=== PATIENT | female | born 1950 | race Caucasian/White ===

== ENCOUNTER 2017-04-24 13:04 | Emergency (ER) | payer OTHER ==
[~2017-04-24] VITALS: Ht 167.6 cm; Wt 122.5 kg
[~2017-04-24 13:04] MED LIST: ALBUTEROL2.5 MG/3 M INH; AMLODIPINE BESY10 MG PO; ASPIRIN EC81 MG PO; BACTRIM DS TAB1 EACH PO; BENADRYL ITCH28.3 G1 TOP; BENADRYL ITCH28.3 GM TP; BENAZEPRIL HCL40 MG PO; BISCOLAX10 MG RC; BUSPIRONE HCL10 MG PO; CENTANY30 GM TOP; CLINDAMYCIN HC150 MG PO; CLINDAMYCIN HC300 MG PO; CLOBETASOL EMOL15 GM TOP; COLACE100 MG PO; DIFLUCAN150 MG PO; DOXYCYCLINE HY100 M3 PO; DOXYCYCLINE HY100 MG PO; DRISDOL50000 UNIT PO; DSS250 MG PO; EPIPEN1 EA INJ; FLEET ENEMA133 ML PR; FLEET ENEMA133 ML RC; FUROSEMIDE40 MG PO; HUMALOG100 UNIT/2 SQ; IMDUR120 MG PO; IRON325 MG PO; KENALOG-4040 MG/ML IB; LANTUS SOL100 UNIT/1 SUB-Q; LIDOPRO PATCH1 EACH TP; LOPRESSOR100 MG PO; LORAZEPAM1 MG PO; LOVASTATIN20 MG PO; MAGNESIUM OXID400 MG PO; METHADONE HCL10 MG PO; METHADONE HCL5 MG PO; METOPROLOL SUC100 MG PO; MILK OF MA400 MG/5 M PO; NEURONTIN800 MG PO; NITROSTAT0.4 MG SL; NORCO 10-325 T1 EACH PO; NORTRIPTYLINE H50 MG PO; NYSTATIN1 EAC2 TOP; OMEPRAZOLE20 MG PO; OXYCODONE HCL15 MG PO; PREDNISONE5 MG PO; PROMETHAZINE HC50 MG PO; RANITIDINE HCL300 M1 PO; REQUIP1 MG PO; REQUIP2 MG PO; ROPINIROLE HCL0.5 MG PO; SENEXON8.6 MG PO; TERBINAFINE HC250 MG PO; TRIAMCINOLONE A15 G1 TOP; VENTOLIN HFA18 GM IH; VITAMIN D350000 UNIT PO; ZITHROMAX250 MG PO; ZYRTEC10 M3 PO
[2017-04-24] MEDS ORDERED: DOCUSATE SODIU250 MG PO (13:47)
[2017-04-24] MEDS ORDERED: REQUIP1 MG PO (13:58)
[2017-04-24] MEDS ORDERED: SULINDAC200 MG PO (14:00)
[2017-04-24] MEDS ORDERED: NORCO 10-325 T1 EACH PO (14:06)
[2017-04-24] MEDS ORDERED: CEFPODOXIME PR200 MG PO (16:01)
--- NOTE | 2017-04-24 22:14 | EKG ---
[facility] [address] [place] [address] Signed Sinus rhythm with 1st degree AV block Left axis deviation Right bundle branch block Septal infarct , age undetermined Inferior infarct , age undetermined Abnormal ECG No previous ECGs available Confirmed by FATEMEH BHAKTA MD ([id number]) on 04/24/2017 10:14:53 PM Electronically Signed By: FATEMEH BHAKTA MD 04/24/17 2214 PATIENT NAME: MANDYFARHAT Electrocardiogram DATE OF : 50 PHYSICIAN: FATEMEH BHAKTA MD REPORT #: [id number] REPORT IS CONFIDENTIAL AND NOT TO BE RELEASED WITHOUT AUTHORIZATION
== END 2017-04-24 17:17 | disposition home or self-care (01) ==
LOC: ED 13:04
DX: E11.649 Type 2 diabetes mellitus with hypoglycemia without coma (principal); N39.0 Urinary tract infection, site not specified; I25.10 Atherosclerotic heart disease of native coronary artery without angina pectoris; J45.909 Unspecified asthma, uncomplicated; F32.9 Major depressive disorder, single episode, unspecified; F41.9 Anxiety disorder, unspecified; I10 Essential (primary) hypertension; K21.9 Gastro-esophageal reflux disease without esophagitis; D64.9 Anemia, unspecified; E66.9 Obesity, unspecified; Z90.710 Acquired absence of both cervix and uterus; Z91.048 Other nonmedicinal substance allergy status; Z91.038 Other insect allergy status; Z88.6 Allergy status to analgesic agent; Z88.5 Allergy status to narcotic agent; Z88.1 Allergy status to other antibiotic agents; Z79.4 Long term (current) use of insulin; Z79.899 Other long term (current) drug therapy; Z79.82 Long term (current) use of aspirin; Z79.52 Long term (current) use of systemic steroids
CPT/HCPCS: 80053; 81001; 85025; 87088; 93005; 93010; 96361; 96374; 99283; J0696; J7030

== ENCOUNTER 2024-05-08 17:42 | Emergency (ER) | payer OTHER ==
[~2024-05-08] VITALS: Ht 167.6 cm; Wt 117.5 kg
[~2024-05-08 17:42] MED LIST changes: +CEFPODOXIME PR200 MG PO; +DOCUSATE SODIU250 MG PO; +SULINDAC200 MG PO
--- OUTSIDE RECORDS SUMMARY | 2024-05-08 17:49 | XMS ---
PreManage Notification: FARHAT GALVAN Security Investigative Agent Events No recent Security Events currently on file CRITERIA MET - 6 ED Visits in 6 Months - [facility] - 2 Visits in 30 Days CARE PROVIDERS Vijaya Keen Insemination Worker/Treasury Analyst 12/19/2023-Current PHONE: [phone] ANGELICA PUCKETT [facility] 08/03/2015-Current PHONE: [phone] -, [facility] Dentist: Packing Tractor Machine Operator [facility] PHONE: [phone] -Telma- Dentist: Packing Tractor Machine Operator [facility] Dental [facility] PHONE: [phone] ADELINA CRUZ [facility]INE[facility]ONY PHONE: Unknown Care Guidelines exist for the following facilities: [facility] ( 11/15/2018 ) [place] VISIT COUNT (12 MO.) [facility] (Anthony Cruz) 1 DINA Estrada TOTAL 6 NOTE: Visits indicate total known visits. ED/UCC VISIT TRACKING (12 MO.) 05/08/2024 17:42 DINA Gan TYPE: Emergency COMPLAINT: - CHEST PAIN 04/11/2024 12:50 [facility] Anthony [place] ([place] TYPE: Emergency DIAGNOSES: - Bradycardia, unspecified - Bradycardia, unspecified - Hyperkalemia - Unspecified atrial fibrillation - Unspecified atrial fibrillation - Urinary tract infection, site not specified - Urinary tract infection, site not specified - Bradycardia 04/01/2024 15:09 [facility] Anthony [place] ([place]) TYPE: Emergency DIAGNOSES: - Acute cystitis with hematuria - Blister (nonthermal), left foot, initial encounter - Cellulitis - lt foot sore 01/05/2024 03:06 [facility] [place] ([place] TYPE: Emergency DIAGNOSES: - Contusion of left hip, initial encounter - Contusion of right shoulder, initial encounter - Unspecified fall, initial encounter - Unspecified place in unspecified non-institutional (private) residence as the place of occurrence of the external cause - ambulance - Fall - Hip Pain 12/21/2023 19:51 [facility] Anthony [place] (Anthony Cruz) TYPE: Emergency DIAGNOSES: - Abrasion of other part of head, initial encounter - Contusion of scalp, initial encounter - Fall from bed, initial encounter - Pain in left hip - Strain of muscle, fascia and tendon at neck level, initial encounter - Facial Pain - Fall - Hip Pain 11/09/2023 19:59 [facility] Anthony [place] ([place]) TYPE: Emergency DIAGNOSES: - Contusion of right lower leg, initial encounter - Leg Pain - rt leg bruising INPATIENT VISIT TRACKING (12 MO.) 04/11/2024 12:50 [facility] [place] ([place] Cruz) TYPE: Medical Surgical DIAGNOSES: - Acute kidney failure, unspecified - Anxiety disorder, unspecified - Bradycardia, unspecified - Chronic kidney disease, stage 3a - Chronic pain syndrome - Diabetes mellitus due to underlying condition with diabetic polyneuropathy - Hyperkalemia - Hypomagnesemia - penitentiary (current) use of insulin - Mild intermittent asthma, uncomplicated - Neuralgia and neuritis, unspecified - Obstructive sleep apnea (adult) (pediatric) - Pruritus, unspecified - Type 2 diabetes mellitus with diabetic neuropathy, unspecified - Unspecified atrial fibrillation - Urinary tract infection, site not specified - Urinary tract infection, site not specified [email or web address]
[2024-05-08 18:20] LABS: HEMOGLOBIN 11.3 g/dL (12.0-18.0); MCHC 32.6 g/dl (30-36)
[2024-05-08 18:22] LABS: BASOPHILS 0.7 % (0-2); EOSINOPHILS 1.5 % (0-6); HEMATOCRIT 34.7 % (35.0-50.0); LYMPHOCYTES 12.3 % (24-44); MCH 30.5 (27-36); MCV 93.6 fl (81-99); MONOCYTES 7.4 % (0-12); NEUTROPHILS 78.1 % (39-80); PLATELET COUNT 229 K/uL (140-440); RDW 15.3 (10.5-15.0)
[2024-05-08 18:37] LABS: ALBUMIN 2.7 g/dL (3.4-5.0); ALBUMIN/GLOBULIN RATIO 0.84 (1.1-2.4); ANION GAP 9.6 (7-21); BILIRUBIN, TOTAL 0.4 ng/dL (0.2-1.0); BUN/CREATININE RATIO 16.03 (6.0-28.6); CALCIUM 8.5 mg/dL (8.5-10.1); CREATININE, SERUM 1.06 mg/dL (0.55-1.02); MAGNESIUM 1.5 mg/dL (1.8-2.4); POTASSIUM 4.6 mmol/L (3.5-5.1); PROTEIN, TOTAL 5.9 g/dL (6.4-8.2)
[2024-05-08] MEDS ORDERED: MAGNESIUM SULFATE 2 GM/50 ML BAG IV ONE (20:00)
[2024-05-08 20:34] LABS: BILIRUBIN, URINE NEGATIVE (negative); BLOOD/HGB, URINE NEGATIVE (Negative); KETONE, URINE NEGATIVE (Negative); LEUK ESTERASE, URINE TRACE (negative); NITRITE, URINE POSITIVE (negative)
[2024-05-08 20:51] LABS: WHITE BLOOD CELLS, URINE 21-40 /HPF (0-5)
[2024-05-08 20:52] LABS: BACTERIA, URINE 3+ /hpf (negative); CRYSTALS, URINE NONE SEEN (0-1+); EPITHELIAL CELLS, URINE SQUAMOUS 1+ /lpf (0-1+)
[2024-05-08 20:53] LABS: CASTS, URINE HYALINE 1+ \\lpf; COLLECTION TYPE, URINE CLEAN CATCH; REFLEX CULTURE, URINE Yes (No)
[2024-05-08] MEDS ORDERED: MAGNESIUM OXID400 M1 PO (21:04)
[2024-05-08] MEDS ORDERED: MACROBID 100 M100 MG PO (21:04)
[2024-05-08] MEDS ORDERED: PLAVIX75 MG PO (21:04)
[2024-05-08] MEDS ORDERED: NITROFURANTOIN MONOHYD MACROCR 100 MG HOME.PACK PO ONE (21:15)
[2024-05-08] MEDS ORDERED: CLOPIDOGREL BISULFATE 75 MG TAB PO ONE (21:15)
[2024-05-08] MEDS ORDERED: ELIQUIS5 MG PO (21:32)
[2024-05-08 21:39] VITALS: BP 123/64
[2024-05-08] MEDS ORDERED: CEFDINIR 300 MG HOME.PACK PO ONE (21:45)
--- NOTE | 2024-05-10 20:26 | EKG ---
[facility] [address] [place] [address] Signed Sinus bradycardia Indeterminate axis Nonspecific intraventricular block Possible Right ventricular hypertrophy Possible Inferior infarct (cited on or before 24-APR-2017) Possible Anterolateral infarct (cited on or before 24-APR-2017) Abnormal ECG When compared with ECG of 08-MAY-2024 17:54, (Unconfirmed) premature supraventricular complexes are no longer present Questionable change in QRS axis Confirmed by Jake Carroll MD ([id number]) on 05/10/2024 8:26:30 PM Electronically Signed By: JAKE CARROLL MD 05/10/242025 PATIENT NAME: FARHAT GALVAN Electrocardiogram DATE OF : 50 PHYSICIAN: JAKE CARROLL MD REPORT #: [id number] REPORT IS CONFIDENTIAL AND NOT TO BE RELEASED WITHOUT AUTHORIZATION
--- NOTE | 2024-05-11 08:52 | EKG ---
[facility] [address] [facility] [place], [place] [address] Signed EKG completed, results pending confirmation PATIENT NAME: MANDYFARHAT Electrocardiogram DATE OF : 50 PHYSICIAN: PRELIMINARY REPORT #: [id number] REPORT IS CONFIDENTIAL AND NOT TO BE RELEASED WITHOUT AUTHORIZATION
== END 2024-05-08 21:39 | disposition home or self-care (01) ==
LOC: ED 17:42
PROVIDERS: Emergency Medicine; Family Medicine
DX: I63.81 Other cerebral infarction due to occlusion or stenosis of small artery (principal); E83.42 Hypomagnesemia; N39.0 Urinary tract infection, site not specified; E11.9 Type 2 diabetes mellitus without complications; I25.10 Atherosclerotic heart disease of native coronary artery without angina pectoris; J45.998 Other asthma; I10 Essential (primary) hypertension; K21.9 Gastro-esophageal reflux disease without esophagitis; F41.9 Anxiety disorder, unspecified; F32.A Depression, unspecified; E66.9 Obesity, unspecified; Z88.1 Allergy status to other antibiotic agents; Z88.5 Allergy status to narcotic agent; Z88.8 Allergy status to other drugs, medicaments and biological substances; Z87.898 Personal history of other specified conditions; Z91.030 Bee allergy status; Z79.4 Long term (current) use of insulin; Z79.899 Other long term (current) drug therapy; Z79.82 Long term (current) use of aspirin
CPT/HCPCS: 36415; 70450; 71045; 80053; 81001; 83735; 84484; 85025; 87088; 87186; 93005; 93010; 96365; 99285-25; J3475

== ENCOUNTER 2024-06-14 07:19 | Emergency (ER) | payer OTHER ==
[~2024-06-14] VITALS: Ht 167.6 cm; Wt 118.4 kg
[~2024-06-14 07:19] MED LIST changes: +ELIQUIS5 MG PO; +MACROBID 100 M100 MG PO; +MAGNESIUM OXID400 M1 PO; +PLAVIX75 MG PO
--- OUTSIDE RECORDS SUMMARY | 2024-06-14 07:23 | XMS ---
PreManage Notification: FARHAT GALVAN Security Gum Machine Filler Events No recent Security Events currently on file CRITERIA MET - 6 ED Visits in 6 Months CARE PROVIDERS Vijaya Keen Dairy Cattle Farmer/Transit Planning Manager 04/19/2024-Current PHONE: [phone] ITALO [facility] 08/03/2015-Current PHONE: [phone] -[facility] Dentist: Mechanical Insulator [facility] PHONE: [phone] Telma Santos- Dentist: Mechanical Insulator [facility] Dental [facility] PHONE: [phone] JUAN CRUZ [facility] Current [facility] INTER[facility]INE[facility]INO PHONE: Unknown Care Guidelines exist for the following facilities: [facility] ( [facility] [place] VISIT COUNT (12 MO.) 5 Juan [facility] ([place]) 2 DINA Estrada TOTAL 7 NOTE: Visits indicate total known visits. ED/UCC VISIT TRACKING (12 MO.) 06/14/2024 07:19 [place]INA [place] TYPE: Emergency COMPLAINT: - BLOOD PRESSURE PROBLEM 05/08/2024 17:42 [place] TYPE: Emergency COMPLAINT: - CHEST PAIN DIAGNOSES: - Allergy status to narcotic agent - Allergy status to other antibiotic agents - Allergy status to other drugs, medicaments and biological substances - Anxiety disorder, unspecified - Atherosclerotic heart disease of [place] coronary artery without angina pectoris - Bee allergy status - Chest pain, unspecified - Depression, unspecified - Essential (primary) hypertension - Gastro-esophageal reflux disease without esophagitis - Hypomagnesemia - assistant terminal manager (current) use of aspirin - assistant terminal manager (current) use of insulin - Obesity, unspecified - Other asthma - Other cerebral infarction due to occlusion or stenosis of small artery - Other assistant terminal manager (current) drug therapy - Personal history of other specified conditions - Type 2 diabetes mellitus without complications - Urinary tract infection, site not specified 04/11/2024 12:50 [facility] Anthony [place] (Anthony Cruz) TYPE: Emergency DIAGNOSES: - Bradycardia, unspecified - Bradycardia, unspecified - Hyperkalemia - Unspecified atrial fibrillation - Unspecified atrial fibrillation - Urinary tract infection, site not specified - Urinary tract infection, site not specified - Bradycardia 04/01/2024 15:09 [facility] Anthony [place] ([place]) TYPE: Emergency DIAGNOSES: - Acute cystitis with hematuria - Blister (nonthermal), left foot, initial encounter - Cellulitis - lt foot sore 01/05/2024 03:06 [facility] Anthony [place] (Anthony Cruz) TYPE: Emergency DIAGNOSES: - Contusion of left hip, initial encounter - Contusion of right shoulder, initial encounter - Unspecified fall, initial encounter - Unspecified place in unspecified non-institutional (private) residence as the place of occurrence of the external cause - ambulance - Fall - Hip Pain 12/21/2023 19:51 [facility] Anthony [place] ([place]) TYPE: Emergency DIAGNOSES: - Abrasion of other part of head, initial encounter - Contusion of scalp, initial encounter - Fall from bed, initial encounter - Pain in left hip - Strain of muscle, fascia and tendon at neck level, initial encounter - Facial Pain - Fall - Hip Pain [facility] DIAGNOSES: - Contusion of right lower leg, initial encounter - Leg Pain - rt leg bruising INPATIENT VISIT TRACKING (12 MO.) 04/11/2024 12:[facility] TYPE: Medical Surgical DIAGNOSES: - Acute kidney failure, unspecified - Anxiety disorder, unspecified - Bradycardia, unspecified - Chronic kidney disease, stage 3a - Chronic pain syndrome - Diabetes mellitus due to underlying condition with diabetic polyneuropathy - Hyperkalemia - Hypomagnesemia - residential (current) use of insulin - Mild intermittent asthma, uncomplicated - Neuralgia and neuritis, unspecified - Obstructive sleep apnea (adult) (pediatric) - Pruritus, unspecified - Type 2 diabetes mellitus with diabetic neuropathy, unspecified - Unspecified atrial fibrillation - Urinary tract infection, site not specified - Urinary tract infection, site not specified [email or web address]
[2024-06-14] MEDS ORDERED: ALOGLIPTIN25 MG PO (07:34)
[2024-06-14] MEDS ORDERED: AZO CRANBERRY1 EACH PO (07:35)
[2024-06-14] MEDS ORDERED: BACLOFEN10 MG PO (07:37)
[2024-06-14] MEDS ORDERED: TUMS200 MG PO (07:39)
[2024-06-14] MEDS ORDERED: D3-5000125 MCG PO (07:40)
[2024-06-14] MEDS ORDERED: FLUOXETINE HCL10 MG PO (07:41)
[2024-06-14] MEDS ORDERED: DICLOFENAC SODI50 GM TOP (07:41)
[2024-06-14] MEDS ORDERED: HYDROXYZINE HCL25 MG PO (07:43)
[2024-06-14] MEDS ORDERED: KETOCONAZOLE15 GM (07:44)
[2024-06-14] MEDS ORDERED: LORATADINE10 MG PO (07:45)
[2024-06-14] MEDS ORDERED: PRAMIPEXOLE D0.75 MG PO (07:45)
[2024-06-14] MEDS ORDERED: ONDANSETRON ODT8 MG PO (07:47)
[2024-06-14] MEDS ORDERED: OXYBUTYNIN CHLO10 MG PO (07:47)
[2024-06-14] MEDS ORDERED: PHENAZOPYRIDIN100 MG PO (07:48)
[2024-06-14 07:49] LABS: BASOPHILS 0.5 % (0-2); EOSINOPHILS 2.4 % (0-6); HEMATOCRIT 39.5 % (35.0-50.0); HEMOGLOBIN 12.9 g/dL (12.0-18.0); LYMPHOCYTES 13.7 % (24-44); MCH 29.9 (27-36); MCHC 32.6 g/dl (30-36); MCV 91.7 fl (81-99); MONOCYTES 6.4 % (0-12); PLATELET COUNT 286 K/uL (140-440); RBC 4.31 M/ul (4.3-5.7)
[2024-06-14] MEDS ORDERED: PREGABALIN50 MG PO (07:49)
[2024-06-14] MEDS ORDERED: PROBIOTIC1 EAC8 PO (07:49)
[2024-06-14] MEDS ORDERED: RANOLAZINE ER500 MG PO (07:51)
[2024-06-14] MEDS ORDERED: CEFDINIR300 MG PO (07:54)
[2024-06-14] MEDS ORDERED: AMIODARONE HCL200 MG PO (07:54)
[2024-06-14] MEDS ORDERED: ROSUVASTATIN CA40 MG PO (07:55)
[2024-06-14 08:11] LABS: ALBUMIN 2.8 g/dL (3.4-5.0); ALBUMIN/GLOBULIN RATIO 0.67 (1.1-2.4); ANION GAP 5.3 (7-21); BILIRUBIN, TOTAL 0.4 ng/dL (0.2-1.0); BUN/CREATININE RATIO 16.3 (6.0-28.6); CREATININE, SERUM 0.92 mg/dL (0.55-1.02); POTASSIUM 4.3 mmol/L (3.5-5.1)
[2024-06-14 08:43] LABS: INFLUENZA B NAA NEGATIVE (NEGATIVE); RESPIRATORY SYNCYTIAL VIR NAA NEGATIVE (NEGATIVE)
[2024-06-14 09:33] VITALS: BP 173/79
== END 2024-06-14 09:33 | disposition home or self-care (01) ==
LOC: ED 07:19
PROVIDERS: Emergency Medicine
DX: R53.1 Weakness (principal); E11.9 Type 2 diabetes mellitus without complications; E66.9 Obesity, unspecified; I10 Essential (primary) hypertension; I25.10 Atherosclerotic heart disease of native coronary artery without angina pectoris; K21.9 Gastro-esophageal reflux disease without esophagitis; Z91.030 Bee allergy status; Z88.1 Allergy status to other antibiotic agents; Z88.5 Allergy status to narcotic agent; Z88.6 Allergy status to analgesic agent; Z88.8 Allergy status to other drugs, medicaments and biological substances; Z91.040 Latex allergy status; Z79.899 Other long term (current) drug therapy; Z79.4 Long term (current) use of insulin; Z79.01 Long term (current) use of anticoagulants
CPT/HCPCS: 36415; 70450; 71045; 80053; 85025; 87502; 99284-25; U0002

== ENCOUNTER 2024-09-06 02:38 | Emergency (ER) | payer OTHER ==
[~2024-09-06] VITALS: Ht 167.6 cm; Wt 124.7 kg
[~2024-09-06 02:38] MED LIST changes: +ALOGLIPTIN25 MG PO; +AMIODARONE HCL200 MG PO; +AZO CRANBERRY1 EACH PO; +BACLOFEN10 MG PO; +CEFDINIR300 MG PO; +D3-5000125 MCG PO; +DICLOFENAC SODI50 GM TOP; +FLUOXETINE HCL10 MG PO; +HYDROXYZINE HCL25 MG PO; -IMDUR120 MG PO; +ISOSORBIDE DINI30 MG PO; +KETOCONAZOLE15 GM; +LORATADINE10 MG PO; +ONDANSETRON ODT8 MG PO; +OXYBUTYNIN CHLO10 MG PO; +PHENAZOPYRIDIN100 MG PO; +PRAMIPEXOLE D0.75 MG PO; +PREGABALIN50 MG PO; +PROBIOTIC1 EAC8 PO; +RANOLAZINE ER500 MG PO; +ROSUVASTATIN CA40 MG PO; +TUMS200 MG PO
[2024-09-06] MEDS ORDERED: propofoL 100 ML IV ONE (02:53)
[2024-09-06] MEDS ORDERED: CEFTRIAXONE/SODIUM CHLORIDE 2 GM/100 ML PIGGYBACK IV ONE (03:00)
[2024-09-06] MEDS ORDERED: propofoL 100 ML IV SCH (03:00)
[2024-09-06] MEDS ORDERED: FUROSEMIDE 100 MG/10 ML VIAL IV ONE (03:00)
[2024-09-06 03:01] LABS: BASOPHILS 0.3 % (0-2); EOSINOPHILS 1.2 % (0-6); HEMOGLOBIN 14.7 g/dL (12.0-18.0); LYMPHOCYTES 11.4 % (24-44); MCH 29.7 (27-36); MCHC 32.6 g/dl (30-36); MONOCYTES 3.5 % (0-12); NEUTROPHILS 83.6 % (39-80); PLATELET COUNT 244 K/uL (140-440); RBC 4.94 M/ul (4.3-5.7); RDW 16.5 (10.5-15.0)
[2024-09-06 03:08] LABS: BASE EXCESS, BLOOD GAS 8.9 mmol/L (-2-2); HCO3, BLOOD GAS 34.9 mmol/L (22-26); O2 SATURATION, BLOOD GAS 93.2 % (95.0-100.0); PCO2, BLOOD GAS 51.9 mmHg (35-45); PH, BLOOD GAS 7.44 (7.35-7.45); PO2, BLOOD GAS 68 mmHg (80-100); TOTAL CO2, BLOOD GAS 36.5
[2024-09-06 03:09] LABS: OXYGEN RECEIVED, BLOOD GAS VENT
[2024-09-06 03:12] LABS: ALBUMIN 3.4 g/dL (3.4-5.0); ALBUMIN/GLOBULIN RATIO 0.89 (1.1-2.4); ANION GAP 9.9 (7-21); BILIRUBIN, TOTAL 0.7 mg/dL (0.2-1.0); BUN/CREATININE RATIO 19.1 (6.0-28.6); CREATININE, SERUM 0.89 mg/dL (0.55-1.02); LACTIC ACID, BLOOD 0.9 mmol/L (0.4-2.0); MAGNESIUM 1.6 mg/dL (1.8-2.4); POTASSIUM 3.9 mmol/L (3.5-5.1); PROTEIN, TOTAL 7.2 g/dL (6.4-8.2)
[2024-09-06] MEDS ORDERED: ETOMIDATE 40 MG/20 ML VIAL IV ONE (03:15)
[2024-09-06] MEDS ORDERED: ROCURONIUM BROMIDE 50 MG/5 ML SYR IV ONE (03:15)
[2024-09-06 03:21] LABS: BILIRUBIN, URINE NEGATIVE (negative); BLOOD/HGB, URINE TRACE-I (Negative); KETONE, URINE NEGATIVE (Negative); LEUK ESTERASE, URINE NEGATIVE (negative); NITRITE, URINE POSITIVE (negative); PH, URINE 5.5 (5-7)
[2024-09-06 03:26] LABS: BACTERIA, URINE 4+ /hpf (negative); CASTS, URINE NONE SEEN \\lpf; CRYSTALS, URINE NONE SEEN (0-1+); EPITHELIAL CELLS, URINE SQUAMOUS 1+ /lpf (0-1+); RED BLOOD CELLS, URINE 0-1 /hpf (0-5)
[2024-09-06 03:27] LABS: COLLECTION TYPE, URINE CATH; REFLEX CULTURE, URINE Yes (No)
[2024-09-06] MEDS ORDERED: MAGNESIUM SULFATE 2 GM/50 ML BAG IV ONE (03:30)
[2024-09-06 03:54] LABS: CORONAVIRUS COVID-19 AG NEGATIVE (NEGATIVE); INFLUENZA A AG NEGATIVE (NEGATIVE); INFLUENZA B AG NEGATIVE (NEGATIVE)
[2024-09-06] MEDS ORDERED: DEXTROSE 50% 50 ML SYR IV ONE ×2 (04:00→06:15)
[2024-09-06] MEDS ORDERED: GLUCAGON,HUMAN RECOMBINANT 1 MG/ML VIAL IV ONE (04:00)
[2024-09-06 04:19] LABS: BASE EXCESS, BLOOD GAS 8.1 mmol/L (-2-2); HCO3, BLOOD GAS 34.6 mmol/L (22-26); O2 SATURATION, BLOOD GAS 95.9 % (95.0-100.0); PCO2, BLOOD GAS 54.2 mmHg (35-45); PH, BLOOD GAS 7.41 (7.35-7.45); TOTAL CO2, BLOOD GAS 36.3
[2024-09-06] MEDS ORDERED: TORSEMIDE10 MG PO (04:42)
[2024-09-06] MEDS ORDERED: HYDRALAZINE HCL25 MG PO (04:45)
[2024-09-06] MEDS ORDERED: MIRAPEX ER1.5 MG PO (04:52)
[2024-09-06] MEDS ORDERED: metroNIDAZOLE/SODIUM CHLORIDE 500 MG/100 ML PIGGYBACK IV ONE (05:15)
[2024-09-06] MEDS ORDERED: ACETAMINOPHEN 650 MG SUPP PR ONE (06:15)
[2024-09-06] MEDS ORDERED: KETOROLAC TROMETHAMINE 30 MG/ML VIAL IV ONE (06:45)
[2024-09-06 07:00] VITALS: BP 114/63
--- NOTE | 2024-09-07 17:23 | EKG ---
[facility] [address] [facility] [place] [address] Signed Sinus rhythm with premature atrial complexes Right bundle branch block Inferior infarct (cited on or before 24-APR-2017) Anterolateral infarct (cited on or before 24-APR-2017) Abnormal ECG When compared with ECG of 08-MAY-2024 17:55, premature atrial complexes are now present Right bundle branch block has replaced Nonspecific intraventricular block Confirmed by Jake Carroll MD ([id number]) on 09/07/2024 5:23:10 PM Electronically Signed By: JAKE CARROLL MD 09/07/24 1723 PATIENT NAME: FARHAT GALVAN Electrocardiogram DATE OF : 50 PHYSICIAN: JAKE CARROLL MD REPORT #: [id number] REPORT IS CONFIDENTIAL AND NOT TO BE RELEASED WITHOUT AUTHORIZATION
== END 2024-09-06 07:00 | disposition short-term general hospital (02) ==
LOC: ED 02:38
PROVIDERS: Family Medicine
DX: J96.90 Respiratory failure, unspecified, unspecified whether with hypoxia or hypercapnia (principal); I48.91 Unspecified atrial fibrillation; I11.0 Hypertensive heart disease with heart failure; I50.9 Heart failure, unspecified; B37.9 Candidiasis, unspecified; J81.1 Chronic pulmonary edema; N39.0 Urinary tract infection, site not specified; E11.9 Type 2 diabetes mellitus without complications; I25.10 Atherosclerotic heart disease of native coronary artery without angina pectoris; J45.998 Other asthma; E66.9 Obesity, unspecified; Z88.5 Allergy status to narcotic agent; Z88.8 Allergy status to other drugs, medicaments and biological substances; Z88.1 Allergy status to other antibiotic agents; Z91.030 Bee allergy status; Z91.040 Latex allergy status; Z79.4 Long term (current) use of insulin; Z79.01 Long term (current) use of anticoagulants; Z79.899 Other long term (current) drug therapy
CPT/HCPCS: 31500; 36415; 36556; 36600; 51702; 71045; 80053; 81001; 82803; 83605; 83735; 83880; 84484; 85025; 87040; 87077; 87088; 87186; 93005; 93010; 94799; 96368; 99285-25; A9270; C1751; J0696; J1610; J1885; J1940; J2704; J3475; J3490

== ENCOUNTER 2024-09-26 14:26 | Emergency (ER) | payer OTHER ==
[~2024-09-26] VITALS: Ht 167.6 cm; Wt 110.0 kg
[~2024-09-26 14:26] MED LIST changes: +HYDRALAZINE HCL25 MG PO; +IMDUR120 MG PO; -ISOSORBIDE DINI30 MG PO; +MIRAPEX ER1.5 MG PO; +TORSEMIDE10 MG PO
--- OUTSIDE RECORDS SUMMARY | 2024-09-26 14:33 | XMS ---
PreManage Notification: FARHAT GALVAN Security Sole Stitcher Hand Events No recent Security Events currently on file CRITERIA MET - 6 ED Visits in 6 Months - [facility] - 2 Visits in 30 Days CARE PROVIDERS Vijaya Keen Scale Model Maker/Cost Accountant 09/17/2024-Current PHONE: [phone] ANGELICA PUCKETT [facility] 08/03/2015-Current PHONE: [phone] -, [facility] Dentist: Vermin Exterminator [facility] PHONE: [phone] -Telma- Dentist: Vermin Exterminator [facility] PHONE: [phone] NAVI PHILIP Nurse Practitioner: Family Current PHONE: [phone] ALEJANDRINA JENKINS Nurse Practitioner: Family Segun SIBLEY PHONE: [phone] ADDY HERNANDEZ PHONE: [phone] EUSEBIA RAMIREZ Nurse Practitioner: Adult Health Segun BREWER PHONE: [phone] ADELINA CRUZ Family [facility] PHONE: Unknown Care Guidelines exist for the following facilities: [facility] ( 11/15/2018 ) [place] VISIT COUNT (12 MO.) 5 Adelina [facility] (Anthony Cruz) 4 DINA Estrada TOTAL 9 NOTE: Visits indicate total known visits. ED/UCC VISIT TRACKING (12 MO.) 09/26/2024 14:26 [place] TYPE: Emergency COMPLAINT: - SHORTNESS OF BREATH 09/06/2024 02:39 [place] TYPE: Emergency COMPLAINT: - SHORTNESS OF BREATH DIAGNOSES: - Allergy status to narcotic agent - Allergy status to other antibiotic agents - Allergy status to other drugs, medicaments and biological substances - Atherosclerotic heart disease of [place] coronary artery without angina pectoris - Bee allergy status - Candidiasis, unspecified - Chronic pulmonary edema - Heart failure, unspecified - Hypertensive heart disease with heart failure - Latex allergy status - alf (current) use of anticoagulants - predatory animal exterminator (current) use of insulin - Obesity, unspecified - Other asthma - Other longterm (current) drug therapy - Respiratory failure, unspecified, unspecified whether with hypoxia or hypercapnia - Shortness of breath - Type 2 diabetes mellitus without complications - Unspecified atrial fibrillation - Urinary tract infection, site not specified 06/14/2024 07:19 [place] TYPE: Emergency COMPLAINT: - BLOOD PRESSURE PROBLEM DIAGNOSES: - Allergy status to analgesic agent - Allergy status to narcotic agent - Allergy status to other antibiotic agents - Allergy status to other drugs, medicaments and biological substances - Atherosclerotic heart disease of [place] coronary artery without angina pectoris - Bee allergy status - Essential (primary) hypertension - Gastro-esophageal reflux disease without esophagitis - Latex allergy status - alf (current) use of anticoagulants - predatory animal exterminator (current) use of insulin - Obesity, unspecified - Other predatory animal exterminator (current) drug therapy - Slurred speech - Type 2 diabetes mellitus without complications - Weakness 05/08/2024 17:[address] [facility] [place] TYPE: Emergency COMPLAINT: - CHEST PAIN DIAGNOSES: - Allergy status to narcotic agent - Allergy status to other antibiotic agents - Allergy status to other drugs, medicaments and biological substances - Anxiety disorder, unspecified - Atherosclerotic heart disease of [place] coronary artery without angina pectoris - Bee allergy status - Chest pain, unspecified - Depression, unspecified - Essential (primary) hypertension - Gastro-esophageal reflux disease without esophagitis - Hypomagnesemia - predatory animal exterminator (current) use of aspirin - alf (current) use of insulin - Obesity, unspecified - Other asthma - Other cerebral infarction due to occlusion or stenosis of small artery - Other predatory animal exterminator (current) drug therapy - Personal history of other specified conditions - Type 2 diabetes mellitus without complications - Urinary tract infection, site not specified [facility] TYPE: Emergency DIAGNOSES: - Bradycardia, unspecified - Bradycardia, unspecified - Hyperkalemia - Unspecified atrial fibrillation - Unspecified atrial fibrillation - Urinary tract infection, site not specified - Urinary tract infection, site not specified - Bradycardia 04/01/2024 15:09 [facility] Anthony Cruz [place] ([place]) TYPE: Emergency DIAGNOSES: - Acute cystitis with hematuria - Blister (nonthermal), left foot, initial encounter - Cellulitis - lt foot sore 01/05/2024 03:06 [facility] [place] ([place] TYPE: Emergency DIAGNOSES: - Contusion of left hip, initial encounter - Contusion of right shoulder, initial encounter - Unspecified fall, initial encounter - Unspecified place in unspecified non-institutional (private) residence as the place of occurrence of the external cause - ambulance - Fall - Hip Pain 12/21/2023 19:51 [facility] [place] ([place] TYPE: Emergency DIAGNOSES: - Abrasion of other part of head, initial encounter - Contusion of scalp, initial encounter - Fall from bed, initial encounter - Pain in left hip - Strain of muscle, fascia and tendon at neck level, initial encounter - Facial Pain - Fall - Hip Pain 11/09/2023 19:59 [facility] Anthony [place] (Anthony Cruz) TYPE: Emergency DIAGNOSES: - Contusion of right lower leg, initial encounter - Leg Pain - rt leg bruising INPATIENT VISIT TRACKING (12 MO.) 09/06/2024 08:19 Janine [place] TYPE: Medical Surgical COMPLAINT: - RESPIRATORY FAILURE DIAGNOSES: 0. Hypertensive heart disease with heart failure 1. Hypertensive heart disease with heart failure 2. Metabolic encephalopathy 3. Acute on chronic diastolic (congestive) heart failure 4. Acute respiratory failure with hypoxia 5. Acute and subacute hepatic failure without coma 6. Cardiogenic shock 7. Acute respiratory failure with hypercapnia 8. Pneumonitis due to inhalation of food and vomit 9. Hemoptysis 10. Alkalosis 11. Body mass index [BMI] 40.0-44.9, adult 12. Atherosclerotic heart disease of [place] coronary artery without angina pectoris 12. Opioid dependence, uncomplicated 13. Atherosclerotic heart disease of [place] coronary artery without angina pectoris 13. Peripheral vascular disease, unspecified 14. Peripheral vascular disease, unspecified 14. Unspecified atrial fibrillation 15. Gastro-esophageal reflux disease without esophagitis 15. Unspecified atrial fibrillation 16. Gastro-esophageal reflux disease without esophagitis 16. Restless legs syndrome 17. Chronic pain syndrome 17. Restless legs syndrome 18. Chronic pain syndrome 18. Unspecified osteoarthritis, unspecified site 19. Systemic lupus erythematosus, unspecified 19. Unspecified osteoarthritis, unspecified site 20. Sjogren syndrome, unspecified 20. Systemic lupus erythematosus, unspecified 21. Dermatophytosis, unspecified 21. Sjogren syndrome, unspecified 22. Dermatophytosis, unspecified 22. Do not resuscitate 23. Do not resuscitate 23. Paroxysmal atrial fibrillation 24. Paroxysmal atrial fibrillation 24. Type 1 diabetes mellitus with diabetic peripheral angiopathy without gangrene 25. Morbid (severe) obesity due to excess calories 25. Type 1 diabetes mellitus with diabetic peripheral angiopathy without gangrene 26. alf (current) use of anticoagulants 26. Morbid (severe) obesity due to excess calories 27. alf (current) use of anticoagulants 27. alf (current) use of insulin 28. Allergy status to analgesic agent 28. alf (current) use of insulin 29. Allergy status to analgesic agent 29. Allergy status to other antibiotic agents 30. Allergy status to other antibiotic agents 30. Bee allergy status 31. Bee allergy status 31. Latex allergy status 32. Allergy status to narcotic agent 32. Latex allergy status 33. Allergy status to narcotic agent 33. Allergy status to other drugs, medicaments and biological substances 34. Allergy status to other drugs, medicaments and biological substances 34. Other nonmedicinal substance allergy status 35. Other nonmedicinal substance allergy status 04/11/2024 12:50 [facility] Anthony [place] (Anthony Cruz) TYPE: Medical Surgical DIAGNOSES: - Acute kidney failure, unspecified - Anxiety disorder, unspecified - Bradycardia, unspecified - Chronic kidney disease, stage 3a - Chronic pain syndrome - Diabetes mellitus due to underlying condition with diabetic polyneuropathy - Hyperkalemia - Hypomagnesemia - predatory animal exterminator (current) use of insulin - Mild intermittent asthma, uncomplicated - Neuralgia and neuritis, unspecified - Obstructive sleep apnea (adult) (pediatric) - Pruritus, unspecified - Type 2 diabetes mellitus with diabetic neuropathy, unspecified - Unspecified atrial fibrillation - Urinary tract infection, site not specified - Urinary tract infection, site not specified [email or web address]
[2024-09-26 15:55] LABS: BASOPHILS 1.5 % (0-2); EOSINOPHILS 2.8 % (0-6); HEMOGLOBIN 11.7 g/dL (12.0-18.0); LYMPHOCYTES 20.6 % (24-44); MCH 29.5 (27-36); MCHC 32.5 g/dl (30-36); MCV 90.7 fl (81-99); MONOCYTES 11.2 % (0-12); NEUTROPHILS 63.9 % (39-80); PLATELET COUNT 378 K/uL (140-440); RBC 3.97 M/ul (4.3-5.7); RDW 16.9 (10.5-15.0)
[2024-09-26 16:18] LABS: ALBUMIN 2.7 g/dL (3.4-5.0); ALBUMIN/GLOBULIN RATIO 0.59 (1.1-2.4); ANION GAP 8.6 (7-21); BILIRUBIN, TOTAL 0.5 mg/dL (0.2-1.0); BUN/CREATININE RATIO 18.1 (6.0-28.6); CALCIUM 8.5 mg/dL (8.5-10.1); CREATININE, SERUM 1.16 mg/dL (0.55-1.02); MAGNESIUM 1.7 mg/dL (1.8-2.4); POTASSIUM 3.6 mmol/L (3.5-5.1); PROTEIN, TOTAL 7.3 g/dL (6.4-8.2)
[2024-09-26] MEDS ORDERED: DEXTROSE 50% 50 ML SYR IV ONE (16:30)
[2024-09-26] MEDS ORDERED: POTASSIUM CHLORIDE 20 MEQ/15 ML CUP PO ONE (17:30)
[2024-09-26] MEDS ORDERED: FUROSEMIDE 100 MG/10 ML VIAL IV ONE (17:30)
[2024-09-26 20:26] VITALS: BP 141/76
--- NOTE | 2024-09-27 21:59 | EKG ---
[facility] [address] [place] [address] Signed Wide QRS rhythm Right bundle branch block Possible Lateral infarct , age undetermined Possible Inferior infarct , age undetermined Abnormal ECG When compared with ECG of 06-SEP-2024 03:07, Wide QRS rhythm has replaced Sinus rhythm Vent. rate has decreased BY 25 BPM Confirmed by Nadya Palafox MD () on 09/27/2024 9:59:45 PM Electronically Signed By: NADYA PALAFOX MD 09/27/24 2159 PATIENT NAME: FARHAT GALVAN Electrocardiogram DATE OF : 50 PHYSICIAN: NADYA PALAFOX MD REPORT #: [id number] REPORT IS CONFIDENTIAL AND NOT TO BE RELEASED WITHOUT AUTHORIZATION
== END 2024-09-26 20:28 | disposition home or self-care (01) ==
LOC: ED 14:26
PROVIDERS: Emergency Medicine
DX: R06.02 Shortness of breath (principal); I10 Essential (primary) hypertension; E11.9 Type 2 diabetes mellitus without complications; J45.909 Unspecified asthma, uncomplicated; K21.9 Gastro-esophageal reflux disease without esophagitis; G47.30 Sleep apnea, unspecified; M19.90 Unspecified osteoarthritis, unspecified site; Z88.8 Allergy status to other drugs, medicaments and biological substances; Z91.038 Other insect allergy status; Z91.040 Latex allergy status; Z88.1 Allergy status to other antibiotic agents; Z79.899 Other long term (current) drug therapy
CPT/HCPCS: 36415; 71045; 80053; 83735; 83880; 84484; 85025; 93005; 93010; 96374; 96375; 99285-25; A9270; J1940

== ENCOUNTER 2024-10-04 12:14 | Inpatient (IN) | payer OTHER ==
[~2024-10-04] VITALS: Ht 167.6 cm; Wt 94.2 kg
[~2024-10-04 12:14] MED LIST changes: -IMDUR120 MG PO; +ISOSORBIDE DINI30 MG PO
--- OUTSIDE RECORDS SUMMARY | 2024-10-04 12:21 | XMS ---
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[employer] Service Events No recent Security Events currently on file CRITERIA MET - 6 ED Visits in 6 Months - [facility] - 2 Visits in 30 Days CARE PROVIDERS Vijaya Keen Restaurant Management Internship/Test Rack Operator 09/17/2024-Current PHONE: [phone] ANGELICA PUCKETT [facility] 08/03/2015-Current PHONE: [phone] -, [facility] Dentist: Librarian Helper [facility] PHONE: [phone] -[place]- Dentist: Librarian Helper [facility] PHONE: [phone] NAVI PHILIP Nurse Practitioner: Family Current PHONE: [phone] ALEJANDRINA JENKINS Nurse Practitioner: Family Segun [facility]LEY PHONE: [phone] ADDY HERNANDEZ PHONE: [phone] EUSEBIA RAMIREZ Nurse Practitioner: Adult Health Segun [facility]ER PHONE: [phone] ADELINA CRUZ Family Medicine [facility] PHONE: Unknown Care Guidelines exist for the following facilities: [facility], [place] ( 11/15/2018 ) [facility] VISIT COUNT (12 MO.) 5 [facility] ([place]) TOTAL 10 NOTE: Visits indicate total known visits. ED/UCC VISIT TRACKING (12 MO.) 10/04/2024 12:14 [facility] [place] TYPE: Emergency COMPLAINT: - SHORTNESS OF BREATH 09/26/2024 14:26 [facility] [place] TYPE: Emergency COMPLAINT: - SHORTNESS OF BREATH DIAGNOSES: - Allergy status to other antibiotic agents - Allergy status to other drugs, medicaments and biological substances - Essential (primary) hypertension - Gastro-esophageal reflux disease without esophagitis - Latex allergy status - Other insect allergy status - Other oil heaterman (current) drug therapy - Shortness of breath - Sleep apnea, unspecified - Type 2 diabetes mellitus without complications - Unspecified asthma, uncomplicated - Unspecified osteoarthritis, unspecified site 09/06/2024 02:39 [facility] [place] TYPE: Emergency COMPLAINT: - SHORTNESS OF BREATH DIAGNOSES: - Allergy status to narcotic agent - Allergy status to other antibiotic agents - Allergy status to other drugs, medicaments and biological substances - Atherosclerotic heart disease of [place] coronary artery without angina pectoris - Bee allergy status - Candidiasis, unspecified - Chronic pulmonary edema - Heart failure, unspecified - Hypertensive heart disease with heart failure - Latex allergy status - care home (current) use of anticoagulants - moth exterminator (current) use of insulin - Obesity, unspecified - Other asthma - Other oil heaterman (current) drug therapy - Respiratory failure, unspecified, [...] biological substances - Atherosclerotic heart disease of [place] coronary artery without angina pectoris - Bee allergy status - Essential (primary) hypertension - Gastro-esophageal reflux disease without esophagitis - Latex allergy status - moth exterminator (current) use of anticoagulants - moth exterminator (current) use of insulin - Obesity, unspecified - Other usp (current) drug therapy - Slurred speech - Type 2 diabetes mellitus without complications - Weakness 05/08/2024 17:42 [facility] [place] TYPE: Emergency COMPLAINT: - CHEST PAIN DIAGNOSES: - Allergy status to narcotic agent - Allergy status to other antibiotic agents - Allergy status to other drugs, medicaments and biological substances - Anxiety disorder, unspecified - Atherosclerotic heart disease of [place] coronary artery without angina pectoris - Bee allergy status - Chest pain, unspecified - Depression, unspecified - Essential (primary) hypertension - Gastro-esophageal reflux disease without esophagitis - Hypomagnesemia - moth exterminator (current) use of aspirin - care home (current) use of insulin - Obesity, unspecified - Other asthma - Other cerebral infarction due to occlusion or stenosis of small artery - Other oil heaterman (current) drug therapy - Personal history of other specified conditions - Type 2 diabetes mellitus without complications - Urinary tract infection, site not specified 04/11/2024 12:50 [facility] [place] ([place]) TYPE: Emergency DIAGNOSES: - Bradycardia, unspecified - Bradycardia, unspecified - Hyperkalemia - Unspecified atrial fibrillation - Unspecified atrial fibrillation - Urinary tract infection, site not specified - Urinary tract infection, site not specified - Bradycardia 04/01/2024 15:09 [facility] [place] ([place]) TYPE: Emergency DIAGNOSES: - Acute cystitis with hematuria - Blister (nonthermal), left foot, initial encounter - Cellulitis - lt foot sore 01/05/2024 03:06 [facility] [place] ([place]) TYPE: Emergency DIAGNOSES: - Contusion of left hip, initial encounter - Contusion of right shoulder, initial encounter - Unspecified fall, initial encounter - Unspecified place in unspecified non-institutional (private) residence as the place of occurrence of the external cause - ambulance - Fall - Hip Pain 12/21/2023 19:51 [facility] [place] ([place]) TYPE: Emergency DIAGNOSES: - Abrasion of other part of head, initial encounter - Contusion of scalp, initial encounter - Fall from bed, initial encounter - Pain in left hip - Strain of muscle, fascia and tendon at neck level, initial encounter - Facial Pain - Fall - Hip Pain 11/09/2023 19:59 [facility] [place] ([place]) TYPE: Emergency DIAGNOSES: - Contusion of right lower leg, initial encounter - Leg Pain - rt leg bruising INPATIENT VISIT TRACKING (12 MO.) 09[facility]24 08[facility] COMPLAINT: - RESPIRATORY FAILURE [...] 40.0-44.9, adult 12. Atherosclerotic heart disease of [place] coronary artery without angina pectoris 12. Opioid dependence, uncomplicated 13. Atherosclerotic heart disease of [place] coronary artery without angina pectoris 13. Peripheral [...] with diabetic peripheral angiopathy without gangrene 26. care home (current) use of anticoagulants 26. Morbid (severe) obesity due to excess calories 27. care home (current) use of anticoagulants 27. care home (current) use of insulin 28. Allergy status to analgesic agent 28. care home (current) use of insulin 29. Allergy status [...] Other nonmedicinal substance allergy status 04/11/2024 12:50 [facility] [place] ([place]) TYPE: Medical Surgical DIAGNOSES: - Acute kidney failure, unspecified - Anxiety disorder, unspecified - Bradycardia, unspecified - Chronic kidney disease, stage 3a - Chronic pain syndrome - Diabetes mellitus due to underlying condition with diabetic polyneuropathy - Hyperkalemia - Hypomagnesemia - care home (current) use of insulin - Mild intermittent asthma, uncomplicated - Neuralgia and neuritis, unspecified - Obstructive sleep apnea (adult) (pediatric) - Pruritus, unspecified - Type 2 diabetes mellitus with diabetic neuropathy, unspecified - Unspecified atrial fibrillation - Urinary tract infection, site not specified - Urinary tract infection, site not specified [id number]
[2024-10-04 12:38] LABS: BASOPHILS 0.5 % (0-2); EOSINOPHILS 1.2 % (0-6); HEMATOCRIT 31.4 % (35.0-50.0); HEMOGLOBIN 10.1 g/dL (12.0-18.0); LYMPHOCYTES 10.9 % (24-44); MCH 29.1 (27-36); MCHC 32.1 g/dl (30-36); MCV 90.5 fl (81-99); MONOCYTES 8.8 % (0-12); NEUTROPHILS 78.6 % (39-80); PLATELET COUNT 208 K/uL (140-440); RBC 3.47 M/ul (4.3-5.7); RDW 16.3 (10.5-15.0)
[2024-10-04] MEDS ORDERED: ACETAMINOPHEN325 M1 PO (12:40)
[2024-10-04] MEDS ORDERED: ELIQUIS5 MG PO (12:41)
[2024-10-04] MEDS ORDERED: DULCOLAX10 MG PR (12:46)
[2024-10-04 13:02] LABS: ALBUMIN 2.3 g/dL (3.4-5.0); ALBUMIN/GLOBULIN RATIO 0.55 (1.1-2.4); ANION GAP 1.4 (7-21); BILIRUBIN, TOTAL 0.5 mg/dL (0.2-1.0); BUN/CREATININE RATIO 15.32 (6.0-28.6); CALCIUM 8.6 mg/dL (8.5-10.1); CREATININE, SERUM 1.24 mg/dL (0.55-1.02); MAGNESIUM 1.6 mg/dL (1.8-2.4); POTASSIUM 4.4 mmol/L (3.5-5.1); PROTEIN, TOTAL 6.5 g/dL (6.4-8.2)
[2024-10-04 13:21] LABS: BASE EXCESS, BLOOD GAS 11.8 mmol/L (-2-2); HCO3, BLOOD GAS 39.9 mmol/L (22-26); O2 SATURATION, BLOOD GAS 94.9 % (95.0-100.0); PH, BLOOD GAS 7.34 (7.35-7.45); PO2, BLOOD GAS 84 mmHg (80-100); TOTAL CO2, BLOOD GAS 42.2
[2024-10-04 13:22] LABS: OXYGEN RECEIVED, BLOOD GAS 4 L
[2024-10-04 13:25] LABS: BILIRUBIN, URINE NEGATIVE (negative); BLOOD/HGB, URINE SMALL (Negative); KETONE, URINE NEGATIVE (Negative); LEUK ESTERASE, URINE SMALL (negative); NITRITE, URINE POSITIVE (negative)
[2024-10-04 13:35] LABS: EPITHELIAL CELLS, URINE SQUAMOUS 1+ /lpf (0-1+); WHITE BLOOD CELLS, URINE 21-40 /HPF (0-5)
[2024-10-04 13:36] LABS: BACTERIA, URINE 3+ /hpf (negative); CASTS, URINE GRANULAR 2+ \\lpf; COLLECTION TYPE, URINE CLEAN CATCH; CRYSTALS, URINE NONE SEEN (0-1+); REFLEX CULTURE, URINE Yes (No)
[2024-10-04 13:45] LABS: AMPHETAMINES, URINE NEGATIVE (NEGATIVE); BARBITURATES, URINE NEGATIVE (NEGATIVE); BENZODIAZEPINE, URINE NEGATIVE (NEGATIVE); BUPRENORPHINE, URINE NEGATIVE (NEGATIVE); CANNABINOID, URINE NEGATIVE (NEGATIVE); COCAINE, URINE NEGATIVE (NEGATIVE); ECSTASY, URINE NEGATIVE (NEGATIVE); FENTANYL, URINE POSITIVE (NEGATIVE); METHADONE, URINE NEGATIVE (NEGATIVE); OPIATES, URINE NEGATIVE (NEGATIVE); OXYCODONE, URINE NEGATIVE (NEGATIVE); PHENCYCLIDINE, URINE NEGATIVE (NEGATIVE)
[2024-10-04 13:48] LABS: CORONAVIRUS COVID-19 AG NEGATIVE (NEGATIVE); INFLUENZA A AG NEGATIVE (NEGATIVE); INFLUENZA B AG NEGATIVE (NEGATIVE)
[2024-10-04] MEDS ORDERED: CEFTRIAXONE SODIUM 2 GM VIAL ONE (13:52)
[2024-10-04] MEDS ORDERED: NALOXONE HCL 0.4 MG SYR IV ONE (14:00)
[2024-10-04] MEDS ORDERED: CEFTRIAXONE SODIUM 2 GM in SODIUM CHLORIDE 0.9% 100 ML IV ONE (14:00)
[2024-10-04] MEDS ORDERED: SODIUM CHLORIDE 0.9% 1,000 ML IV PRN (14:00)
[2024-10-04] MEDS ORDERED: NALOXONE HCL 0.4 MG SYR ONE (14:37)
[2024-10-04] MEDS ORDERED: NALOXONE HCL 2 MG/2 ML SYR IV ONE (14:45)
[2024-10-04] MEDS ORDERED: FUROSEMIDE 40 MG/4 ML VIAL IV ONE ×2 (15:15→18:15)
[2024-10-04 15:31] LABS: PH, VENOUS 7.365 (7.31-7.41)
[2024-10-04] MEDS ORDERED: MAGNESIUM SULFATE 2 GM/50 ML BAG IV SCH (18:15)
--- NOTE | 2024-10-04 18:25 | NUR ---
RN TO ER TO GET REPORT FROM ZULY RN, PT ON BIPAP TALKING TO FRIEND AT BEDSIDE. AWAKE AND TALKATIVE. CHANGED TO OXYGEN MASK FOR TRANSPORT WITH [facility]. THIS RN TRANSPORTED PT TO 129 VIA STRECHER HOVER MAT TRSF SLIDE TO BED 129. PT IS BASELINE W/C AND IS NOT ABLE TO STAND OR PIVOT. USES ATTENDS AND IS CHANGED. SKIN ASSESSMENT NOTED RED/ YEAST LIKE FOLDS AT BREAST AND PANNUS, AND CRACK OF BOTTOM. BRIDGES TO GRAVITY, SEDIMENT AND APPEARS LIKE "PUSS" NOTED BEFORE LASIX GIVEN IN ER. PT IV R ARM TO MG DRIP PER ORDER. PT IS JAVI AND NOTES THAT SHE HAS BEEN TOLD SHE NEEDS A PACEMAKER, SHE SEES A UROLOGIST PER REPORT AND IS HERE WITH HER FRIEND LARISA WHO IS A NURSE. 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 DM2 - BS 111, CALL LIGHT IN REACH AND ORIENTED TO ROOM.
[2024-10-04] MEDS ORDERED: K-TAB ER20 MEQ PO ×2 (18:34→18:35)
[2024-10-04] MEDS ORDERED: FUROSEMIDE40 MG PO (18:36)
[2024-10-04] MEDS ORDERED: PRAMIPEXOLE D0.75 MG PO (18:38)
[2024-10-04] MEDS ORDERED: ROSUVASTATIN CA40 MG PO (18:39)
[2024-10-04] MEDS ORDERED: OXYBUTYNIN CHLOR5 MG PO (18:40)
[2024-10-04] MEDS ORDERED: OMEPRAZOLE20 MG PO (18:41)
[2024-10-04] MEDS ORDERED: INSULIN GL100 UNIT/1 SUB-Q (18:43)
[2024-10-04 18:45] VITALS: BP 149/75
[2024-10-04] MEDS ORDERED: KLAYESTA15 GM TOP (18:46)
[2024-10-04] MEDS ORDERED: MIRALAX17 GM PO (18:47)
[2024-10-04] MEDS ORDERED: ALBUTEROL SULFATE 0.083% 3 ML VIAL INH PRN (19:00)
--- NOTE | 2024-10-04 19:21 | NUR ---
update to dr, bs 111, diet order and hx uti with esbl reesistance. start mild ss insulin protocol and diet per wbt record.
[2024-10-04] MEDS ORDERED: GLUCAGON,HUMAN RECOMBINANT 1 MG/ML VIAL SUB-Q PRN (19:30)
[2024-10-04] MEDS ORDERED: DEXTROSE 50% 50 ML SYR IV PRN ×2 (19:30)
[2024-10-04] MEDS ORDERED: IBLOOD GLUCOSE TEST STRIP 1 EA TEST XX PRN (19:30)
[2024-10-04] MEDS ORDERED: DEXTROSE 5% 1,000 ML IV PRN (19:30)
--- NOTE | 2024-10-04 19:30 | NUR ---
PT RESTING IN BED, EYES CLOSED, FRIEND CHUCK HAS JUST LEFT. REPORT RECEIVED FROM ELSIE WILLIAM.
[2024-10-04 20:00] VITALS: BP 138/60
--- NOTE | 2024-10-04 20:30 | NUR ---
IN TO DO ASSESSMENT, MEDS AND HS CARE. PT IS SLEEPING, AWAKENS WITH PHYS STIMULI AND STATES " I WAS DREAMING ABOUT BEING ON THE BIPAP," MUMBLES SOME OTHER WORDS, AND THEN GOES BACK TO SLEEP. LUNGS COARSE/DIM, RT JUST TURNED O2 DOWN TO 1L/OM AND SPO2 IS 95%, RESP EVEN AND UNLABORED. OCC PRODUCTIVE COUGH NOTED. RR 18.
[2024-10-04 21:00] VITALS: BP 144/62
[2024-10-04] MEDS ORDERED: INSULIN LISPRO 100 UNIT/ML ML SUB-Q SCH (21:00)
[2024-10-04] MEDS ORDERED: IBLOOD GLUCOSE TEST STRIP 1 EA TEST VI SCH (21:00)
[2024-10-04] MEDS ORDERED: INSULIN GLARGINE-YFGN 100 UNIT/ML ML SUB-Q SCH (21:00)
[2024-10-04] MEDS ORDERED: APIXABAN 5 MG TAB PO SCH (21:00)
[2024-10-04] MEDS ORDERED: ERTAPENEM SODIUM 1 GM in SODIUM CHLORIDE 0.9% 50 ML IV SCH (21:00)
[2024-10-04] MEDS ORDERED: MICONAZOLE NITRATE 1 EA BTL TOP SCH (21:00)
--- NOTE | 2024-10-04 21:30 | NUR ---
PT DID WAKE UP AND WAS ABLE TO ANSWER MORE QUESTIONS. KNOWS SHE IS AT [facility] IN [facility], HS CARE DONE. PT AT TIMES HAS TROUBLE FINDING HER WORDS, STATES "NORA HAD TROUBLE WITH THAT ALL OF MY ADULT LIFE". PT TOOK OXYNASK OFF TO TAKE ELIQUIS AND DRINKS OF WATER- MOUTH IS VERY DRY. SPO2 DROPPED TO 78% WITH MASK OFF, O2 REAPPLIED AND SATS BACK UP TO 90'S.
[2024-10-04] MEDS ORDERED: ERTAPENEM SODIUM 1 GM/10 ML VIAL ONE (21:52)
[2024-10-04 22:00] VITALS: BP 108/68
[2024-10-04 23:00] VITALS: BP 155/69
--- NOTE | 2024-10-04 23:23 | NUR ---
RECEIVED CALL FROM SISTER DANA ASKING FOR AN UPDATE. SHE ALSO EXPRESSED HER CONCERNS REGARDING THE POSITIVE FENTANYL TEST TODAY ALONG WITH HER SISTERS RECENT RESPIRATORY PROBLEMS.
--- NOTE | 2024-10-04 23:52 | NUR ---
PT ASKING FOR MORE WATER, SMALL SIP GIVEN, THEN PT PLACED BACK ON BIPAP, SPO2 100%.
[2024-10-05] VITALS (13 sets, daily range): BP systolic 115–150; BP diastolic 50–65
[2024-10-05] MEDS ORDERED: SODIUM CHLORIDE 45 ML BTL NAS PRN (02:45)
--- NOTE | 2024-10-05 03:35 | NUR ---
PT HAS BEEN SOMEWHAT RESTLESS THE LAST COUPLE OF HOURS, FREQUENTLY CALLING WITH LITTLE REQUESTS. RT IN TO ADJUST BIPAP FOR COMPLAINT OF "TOO MUCH AIR SWIRLING AROUND". PT CALLS AT ONE POINT TO ASK ABOUT HER HR IN THE 40'S, DENIES FEELING LIGHTHEADED/DIZZY, DOES REPORT THAT IT IS NORMALLY LOW. IS OVERALL ALERT AND ORIENTED AND AWARE OF PLACE/SITUATION. ASSESSMENT UNCHANGED FROM EARLIER.
--- NOTE | 2024-10-05 04:30 | NUR ---
PT CALLS FOR HELP WITH TV CHANNEL, REQUESTING PUDDING AND WATER.
[2024-10-05 05:32] LABS: BASOPHILS 0.9 % (0-2); EOSINOPHILS 3.1 % (0-6); HEMATOCRIT 32.2 % (35.0-50.0); HEMOGLOBIN 10.4 g/dL (12.0-18.0); LYMPHOCYTES 16.9 % (24-44); MCH 29.3 (27-36); MCHC 32.3 g/dl (30-36); MCV 90.6 fl (81-99); MONOCYTES 10.8 % (0-12); NEUTROPHILS 68.3 % (39-80); PLATELET COUNT 191 K/uL (140-440); RBC 3.55 M/ul (4.3-5.7); RDW 16.5 (10.5-15.0)
[2024-10-05 05:41] LABS: ANION GAP 3.7 (7-21); BUN/CREATININE RATIO 12.59 (6.0-28.6); CALCIUM 8.7 mg/dL (8.5-10.1); CREATININE, SERUM 1.27 mg/dL (0.55-1.02); MAGNESIUM 2.1 mg/dL (1.8-2.4); POTASSIUM 3.7 mmol/L (3.5-5.1)
[2024-10-05 06:19] LABS: PH, VENOUS 7.382 (7.31-7.41)
--- NOTE | 2024-10-05 06:46 | NUR ---
PT PLACED BACK ON BIPAP 04/12, 35%. AWAKE AND WATCHING TV IN BED.
--- NOTE | 2024-10-05 07:32 | NUR ---
PT HAD FALLEN ASLEEP ON BIPAP 18/5 35%, SATS DROPPED DOWN TO 87-88%, FIO2 UP TO 50%. PT THEN WOKE UP AND SPO2 UP TO 100%. RT IN TO WORK WITH PT ON BIPAP MASK.
--- NOTE | 2024-10-05 07:45 | NUR ---
IN ROOM, PT AWAKE WITH BIPAP ON, RT IN ROOM ADJUSTING MASK TO FIT BETTER. PT DENIES NEEDS, CALL LIGHT IN REACH. TEMP TAKEN, PT RESTING IN BED.
[2024-10-05] MEDS ORDERED: PANTOPRAZOLE SODIUM 40 MG TABEC PO SCH (09:00)
[2024-10-05] MEDS ORDERED: FUROSEMIDE 40 MG/4 ML VIAL IV SCH (09:00)
[2024-10-05] MEDS ORDERED: FLUOXETINE HCL 10 MG CAP PO SCH (09:00)
[2024-10-05] MEDS ORDERED: CEFTRIAXONE SODIUM 1 GM in SODIUM CHLORIDE 0.9% 100 ML IV SCH (09:00)
[2024-10-05] MEDS ORDERED: BACLOFEN 10 MG TAB PO SCH (09:22)
[2024-10-05] MEDS ORDERED: oxyBUTYnin chloride 5 MG TAB PO SCH (09:23)
[2024-10-05] MEDS ORDERED: PREGABALIN 25 MG CAP PO SCH (09:24)
--- NOTE | 2024-10-05 10:21 | NUR ---
PATIENT IS IN BED AT THIS TIME, JUST GOT BACK FROM A CT SCAN. ANNEALING FURNACE OPERATOR ASSISTED RN ELSIE IN A BED BATH, GOWN CHANGE AND A WARM BLANKET FOR PATIENT. ANNEALING FURNACE OPERATOR EMPTIED GARBAGES AND CLEANED UP ROOM A BIT. CALL LIGHT WIHT IN REACH AND NOTHING ELSE NEEDED AT THIS TIME.
--- NOTE | 2024-10-05 11:30 | NUR ---
Spoke with Remedios. I have known her for 20+ years. She is currently residing at [facility]. She now uses a wc all of the time. She has an electric wc, but does not have room to use a [place]. She states she was also trying to maintain some leg strength by walking with the we. She does not want a walker and states there is one available to her. Pt does not have Medicare as she worked for the [employer], they did not pay into medicare. She has [facility] medical and middle or intermediate school principal for placement. Pt states her CHF has been worsening. Pt denies needs and plans on return to [place]. She does states she enjoys living there.
[2024-10-05] MEDS ORDERED: AZITHROMYCIN 250 MG TAB PO SCH (11:45)
[2024-10-05] MEDS ORDERED: PHARMACY RENAL DOSE ADJUSTMENT 1 DOSE MISC PO SCH (12:00)
--- NOTE | 2024-10-05 12:23 | NUR ---
PATIENT IS IN HER CHAIR AT THIS TIME, RN GERIATRIC CHARTED VITALS AND OUTPUT. CLEANED ROOM UP, GOT PATIENT A WARM BLANKET, FRESH ICE WATER, AND BROUGHT LUNCH IN FOR PATIENT. CALL LIGHT WITH IN REACH AND NOTHING ELSE NEEDED AT THIS TIME.
[2024-10-05 13:20] LABS: AMPHETAMINES, URINE NEGATIVE (NEGATIVE); BARBITURATES, URINE NEGATIVE (NEGATIVE); BENZODIAZEPINE, URINE NEGATIVE (NEGATIVE); BUPRENORPHINE, URINE NEGATIVE (NEGATIVE); CANNABINOID, URINE NEGATIVE (NEGATIVE); COCAINE, URINE NEGATIVE (NEGATIVE); ECSTASY, URINE NEGATIVE (NEGATIVE); FENTANYL, URINE NEGATIVE (NEGATIVE); METHADONE, URINE NEGATIVE (NEGATIVE); OPIATES, URINE NEGATIVE (NEGATIVE); OXYCODONE, URINE NEGATIVE (NEGATIVE); PHENCYCLIDINE, URINE NEGATIVE (NEGATIVE)
--- NOTE | 2024-10-05 13:26 | NUR ---
UR CLINICAL REVIEW: MCG-PER MCG REVIEW MEETS INPT FOR DELIRIUM/CHF WITH BIPAP NEEDED ODS [facility] INPT 10/04/24 @ 1736 ORDER MATCHES REG CLINICALS FAXED TO [facility] FOR AUTH REVIEW DISCHARGE TO HOME WHEN STABLE 10/08/24
--- NOTE | 2024-10-05 14:09 | NUR ---
VISITED DURING SPIRITUAL CARE ROUNDS. PT IN OVERALL GOOD SPIRITS, TALKED OF FRIEND INTENDING TO VISIT, ASKED FOR WARM WASH CLOTH FOR SORE EYE, NO OTHER NEEDS. LUMBER TRIPPER PROVIDED SUPPORTIVE PRESENCE, HOSPITALITY, PRAYER, ADVOCATED FOR PT. PT EXPRESSED GRATITUDE.
--- NOTE | 2024-10-05 14:15 | NUR ---
Spoke with Remedios with [employer], [employer] wind energy project manager. Discussed with Remedios on arrival she was positive when tested on a drug screen for fentanyl. Family are requesting the police to be notified. Discussed with pt if she would like for us to do so as they are retesting in case of a false positive. I stress concern of making accusation until it is clear this is an actual positive test. Remedios stated, "there is no need". I let her know a comprehensive drug test was sent to [facility] if there is fentanyl in her system or if it was a false positive due to another medication. I did discuss if this returns positive I will notify [employer] and the police. I was notified after our discussion pt was retested for fentanyl and it was negative. I spoke with the lab and the comprehensive test could return as soon as tomorrow at the latest five days. Remedios will call and update her family.
--- NOTE | 2024-10-05 14:39 | NUR ---
NOTES FROM RECENT [facility]OS ADMIT WITH INTUBATION HERE FOR DR TO REVIEW. PT UP IN CHAIR DRINKING WATER, WATCHING TV AND TALKING WITH STAFF. BRIDGES TO GRAVITY, CALL LIGHT IN REACH.
[2024-10-05] MEDS ORDERED: busPIRone HCL 5 MG TAB PO SCH (15:00)
[2024-10-05] MEDS ORDERED: FUROSEMIDE 40 MG/4 ML VIAL IV ONE (15:00)
--- NOTE | 2024-10-05 15:35 | NUR ---
pt up in chair visiting with her brother and his , asks to speak to painter supervisor. [facility] Vasquez RN in with this rn to visit with pt and family - pt asks about her current polst that is on chart from 09/2024. reviewed that she is full code, yes that is what she wants. understands that if her heart stops she will get cpr/code and if she is having trouble breathing or ventaling she will get intubated, and any other life saving meausures as needed. pt asks who is the person/family on the form with her. Clarify that it is her form, and that she has signed it with the dr. and it is only her name and consent on the POLST. That it is not a POA form. She asks about her sister Pavithra and both staff are unaware of any legal forms or POA that has her sister on it to make desisions for her. Remedios is aware that if anything happens to her we will follow the form provided and that is her decision - even when she can not speak for herself, we will follow her documented wishes. She says "good, thats what I want" her brother and agree. Pt asks to return to bed at this time using the Thomas and she is moved gently back to her clean bed, with taylor to gravity. Po meds given, and Iv lasix after taylor drained for 350 ml urine. pt in bed with call light, hob up while visiting and warm blankets given. Lower extremety bilateral have increased edema noted while pt was up in chair and legs were down. 2-3 pitting with sock line at ankle noted. pt denies needs.
--- NOTE | 2024-10-05 17:26 | NUR ---
PT ALERT AND ORIENTED, ASKING ABOUT DINNER, BS 139 NO INSULIN NEEDED. CALL LIGHT IN REACH.
--- NOTE | 2024-10-05 19:17 | NUR ---
dr here in with pt and rn aware of vitals and i/o. pt talkative and no complaints. call light in reach.
--- NOTE | 2024-10-05 20:00 | NUR ---
PT. RESTING WITH EYES CLOSED, PT AWAKENED, A&OX3, PT REQUESTED TO WATCH TV. DENIES HAVING ANY PAIN AT THIS TIME. CALL LIGHT WITHIN REACH. NURSE PERFORMED ASSESSMENT. VSS. PT. AFEBRILE. OXYGEN SATURATION 98% ON 4L OXYGEN VIA NC. NO SIGNS OF DISTRESS OR DISCOMFORT NOTED. PT. FAMILY CALLED (DANA). NURSE UPDATED DANA. DANA CONTINUED TO SPEAK TO PT. ON TELEPHONE.
[2024-10-05] MEDS ORDERED: MEROPENEM 1,000 MG VIAL IV ONE (20:51)
[2024-10-05] MEDS ORDERED: PRAMIPEXOLE DIHYDROCHLORIDE 1 MG TAB PO SCH (21:00)
[2024-10-05] MEDS ORDERED: MEROPENEM 1,000 MG in SODIUM CHLORIDE 0.9% 100 ML IV SCH (22:00)
[2024-10-06] VITALS (8 sets, daily range): BP systolic 127–146; BP diastolic 53–87
--- NOTE | 2024-10-06 | NUR ---
PATIENT IN BED WATCHING TV; VSS. PATIENT AFEBRILE. PATIENT REQUESTED TO USE BEDPAN. PATIENT ABLE TO TURN FROM SIDE TO SIDE. PATIENT HAD A LARGE HARD, BROWN BM. NURSE PROVIDE PERIANAL CARE. PATIENT DENIED HAVING ANY PAIN OR DISCOMFORT. CALL LIGHT AND PATIENT'S BELONGINGS WITHIN REACH. PATIENT A&0X3
--- NOTE | 2024-10-06 01:00 | NUR ---
PATIENT USED CALL LIGHT TO CALL NURSE. PATIENT ADVISED THAT SHE WOULD LIKE TO WEAR BIPAP. RT APPLIED BIPAP. PATIENT TOLERATING BIPAP. OXYGEN SATURATION 97%. SEE RT NOTES FOR BIPAP SETTINGS. CALL LIGHT AND PATIENT BELONGINGS WITHIN REACH.
--- NOTE | 2024-10-06 02:59 | NUR ---
PATIENT USED CALL LIGHT TO CALL NURSE. PATIENT ADVISED NURSE THAT SHE DID NOT WANT TO WEAR HER BIPAP. PATIENT CLAIMED THAT SHE BIPAP WAS UNCOMFORTABLE AND WAS PREVENTING HER FROM SLEEPING. NURSE ADVISED RT. NURSE REMOVED BIPAP PER PATIENT'S REQUEST. PATIENT BACK ON 4L O2 VIA NC. PATIENT ADVISED NURSE OF INCREASED COMFORT. PATIENT DENIED HAVING PAIN OR DISCOMFORT AT THIS TIME. CALL LIGHT AND PATIENT'S BELONGINGS WITHIN REACH.
--- NOTE | 2024-10-06 04:00 | NUR ---
PATIENT ASLEEP. PATIENT EASILY AWAKENED. PATIENT A&OX3. NURSE PERFOMED ASSESSMENT AND OBTAINED VITAL SIGNS. VSS. PATIENT DENIED HAVING ANY PAIN OR DISCOMFORT. CALL LIGHT AND BELONGINGS WITHIN REACH. PATIENT TOLERATING 4L NC. O2 SATS 93-96%. PATIENT REMAINS AFEBRILE.
[2024-10-06] MEDS ORDERED: MEROPENEM 1,000 MG VIAL IV ONE ×3 (05:02→22:07)
[2024-10-06 05:20] LABS: BASOPHILS 0.7 % (0-2); EOSINOPHILS 2.7 % (0-6); HEMATOCRIT 33.4 % (35.0-50.0); HEMOGLOBIN 10.8 g/dL (12.0-18.0); MCHC 32.4 g/dl (30-36); MCV 89.7 fl (81-99); MONOCYTES 9.9 % (0-12); NEUTROPHILS 71.7 % (39-80); PLATELET COUNT 209 K/uL (140-440); RBC 3.72 M/ul (4.3-5.7); RDW 16.2 (10.5-15.0)
[2024-10-06 05:32] LABS: ANION GAP 4.2 (7-21); BUN/CREATININE RATIO 14.67 (6.0-28.6); CALCIUM 8.9 mg/dL (8.5-10.1); CREATININE, SERUM 1.09 mg/dL (0.55-1.02); MAGNESIUM 1.8 mg/dL (1.8-2.4); POTASSIUM 3.2 mmol/L (3.5-5.1)
[2024-10-06] MEDS ORDERED: ACETAMINOPHEN 500 MG TAB PO PRN (06:00)
--- NOTE | 2024-10-06 08:15 | NUR ---
RN IN ROOM TO RESPOND TO CALL LIGHT - PT REQUESTS TO USE BED SMITH. LARGE FORMED HARD STOOL VOIDED. LEVI AREA CLEANED, SUPERFICIAL CRACKS IN SKIN IN INTERGLUTEAL CLEFT PAINFUL WITH WIPING. PT STATES HER SKIN RESPONDS BETTER TO "CREAM THAN POWDER". BRIDGES CARE COMPLETE. PT DESATURATES QUICKLY WITH LOG ROLL MOVEMENT IN BED- 02 CURRENTLY AT 4L, RECOVERS TO LOW 90% SP02 WITHIN 1 MINUTE OF REST. CBG OBTAINED, 89. PT STATES SHE HAS BEEN HAVING "LOW ALARMS ON MY DEXICOM" PRIOR TO THIS ADMISSION. RT IN ROOM FOR [facility]. PT REPOSISTIONED UP IN BED. BREAKFAST PROVIDED. CALL LIGHT IN REACH.
[2024-10-06] MEDS ORDERED: FUROSEMIDE 40 MG/4 ML VIAL IV SCH (09:00)
[2024-10-06] MEDS ORDERED: INSULIN GLARGINE-YFGN 100 UNIT/ML ML SUB-Q SCH (09:00)
[2024-10-06] MEDS ORDERED: POTASSIUM CHLORIDE 10 MEQ TABCR PO ONE ×3 (09:00→17:00)
--- NOTE | 2024-10-06 09:37 | NUR ---
02 TITRATED TO 1L WHILE RESTING IN BED TO MAINTAIN SPO2 GOAL 88-92%. VS STABLE. PT/OT IN ROOM FOR THERAPY.
--- NOTE | 2024-10-06 10:30 | NUR ---
PT UP IN CHAIR AFTER PT/OT THERAPY - PT TITRATED TO 3L FOR ACTIVITY BUT BACK DOWN TO 1L AT REST. PT REPORTS HEADACHE- PRN ADMINISTERED. CALL LIGHT IN LAP.
[2024-10-06] MEDS ORDERED: LACTOBACILLUS RHAMNOSUS GG 1 EACH CAP PO SCH (10:53)
--- NOTE | 2024-10-06 10:58 | NUR ---
RN IN ROOM ROUNDING WITH MD - ALL QUESTIONS ANSWERED AND UPDATED PLAN OF CARE DISCUSSED WITH PT. SISTER DANA UPDATED VIA TELEPHONE.
--- NOTE | 2024-10-06 11:45 | NUR ---
Spoke with Remedios. She denies needs. Plans on return to [place] when cleared medically. Checked with the lab and her comprehensive drug test has not returned.
--- NOTE | 2024-10-06 12:23 | NUR ---
RN IN ROOM TO OBTAIN LUNCH CBG - NO INSULIN COVERAGE NEEDED. PT REMAINS UP IN CHAIR. REPORTS POOR APPETITE THIS AFTERNOON. SP02 STABLE ON 1L NC. PAIN REPORTED "BETTER" AT 3/10. CALL LIGHT IN REACH. BRIDGES CATH DRAINING DILUTE URINE, EMPTIED. PT REQUESTS SHOWER, WILL MAKE PLAN TO ACCOMODATE WITH 02 NEEDS/BRENDA.
--- NOTE | 2024-10-06 12:53 | NUR ---
PT REQUESTING TO GO BACK TO BED FROM CHAIR. SPOKE WITH PHYSICAL THERAPY WHO RECOMMENDS PT BE A BRENDA BACK TO BED. PT COMPLAINING OF NAUSEA. AGREES TO STAY IN CHAIR UNTIL SHE CAN BE MEDICATED FOR NAUSEA. CALLED DR CASTREJON AND RECIEVED VERBAL ORDER FOR 4 MG OF ZOFRAN. PTS O2 ALSO DROPPING TO LOW 80S WHILE IN CHAIR. TURNED UP TO 2L/NC AND RECOVERED TO 92%.
[2024-10-06] MEDS ORDERED: ondansetron HCL 4 MG/2 ML VIAL IV PRN (13:00)
--- NOTE | 2024-10-06 13:32 | NUR ---
PT BACK TO BED PER REQUEST USING BRENDA LIFT. POSISTIONED TO LAY ON LEFT SIDE USING PILLOWS. 2L NC IN PLACE, PT QUICKLY TO SLEEP. CALL LIGHT IN REACH.
[2024-10-06] MEDS ORDERED: ALBUTEROL/IPRATROPIUM 3 ML NEB INH SCH (14:00)
--- NOTE | 2024-10-06 15:45 | NUR ---
PT AWAKE FROM NAP - SLEPT WELL FOR APPROX 2 HOURS, NOT NEEDING MORE 02 THAN 1L VIA NC. VISITOR AT SIDE. PO MEDS ADMINISTERED WITHOUT DIFFICULTY. PT AGREES WITH PLAN TO SHOWER AT THIS TIME.
--- NOTE | 2024-10-06 16:55 | NUR ---
SHOWER COMPLETE USING BRENDA TO SHOWER CHAIR. - PT ABLE TO HELP ASSIST IN BATHING MINIMALLY. ALL FOLDS WASHED THOROUGHLY OF OLD POWDER. VARIOUS SUPERFICIAL CRACKS IN SKIN UNDER PANUS AND LEVI AREA R/T CHRONIC YEAST. PT HAD ADDITIONAL HARD/FORMED STOOL WHILE IN SHOWER INDICITAVE OF CONSTIPATION-EDUCATION PROVIDED TO PT REGARDING BOWEL CARE - PT EXTREMILY CAUTIOUS OF LAXITIVES SHE REPOTS THEY MAKE HER SICK. BRENDA USED TO PLACE BACK IN BED SIDE CHAIR AND TRANSPORT TO ROOM 119. REPORT GIVEN TO NATALIIA SANCHEZ AT BEDSIDE WITH PT PARTICIPATION. ALL BELONGINGS FOLLOWED PT.
--- NOTE | 2024-10-06 17:11 | EKG ---
[facility] [address] [place] [address] Signed Sinus bradycardia Right bundle branch block Possible Inferior infarct , age undetermined Anterolateral infarct , age undetermined Abnormal ECG When compared with ECG of 26-SEP-2024 16:02, Sinus rhythm has replaced Wide QRS rhythm Confirmed by Jake Carroll MD ([id number]) on 10/06/2024 5:11:29 PM Electronically Signed By: JAKE CARROLL MD 10/06/24 1711 PATIENT NAME: FARHAT GALVAN Electrocardiogram DATE OF : 50 PHYSICIAN: JAKE CARROLL MD REPORT #: [id number] REPORT IS CONFIDENTIAL AND NOT TO BE RELEASED WITHOUT AUTHORIZATION
--- NOTE | 2024-10-06 17:20 | NUR ---
PT ARRIVES IN RECLINER CHAIR PUSHED BY NATALIIA VAZQUEZ. PT INTO ROOM. VITAL SIGNS AND BLOOD SUGAR OBTAINED, BLOOD SUGAR VERIFIED WITH LUCY ZAMARRIPA. PT RESTING IN RECLINER WHILE THIS RN RECEIVED REPORT. THIS RN REMAINS IN ROOM AT THIS TIME.
--- NOTE | 2024-10-06 18:10 | NUR ---
NATALIIA VAZQUEZ STARTS NEW IV IN PTs R UPPER ARM. PT TOLERATES WELL. CPOX AT CHAIRSIDE. PT CURRENTLY ON 1LNC TO MAINTAIN SPO2 OF 88-92%. PT LUNG SOUNDS CLEAR IN BILAT UPPER LOBES WITH CRACKLES TO BILAT BASES. PT REPORTS NO SOB, DEMONSTRATES USE OF ACAPELLA SHE HAS AT CHAIRSIDE. HEART SOUNDS WITH PROMINENT MURMUR HEARD. PT HR IS JAVI AT 51BPM. PT IS ASYMPTOMATIC OF THIS. PTs BLE ARE ELEVATED IN RECLINER, RLE HAS 2+ PITTING EDEMA AND TENDER TO PALPATION. LLE HAS 3+ PITTING EDEMA. PT HAS BRIDGES CATH FREELY DRAINING CLEAR, YELLOW URINE TO CHAIR SIDE. PT REPORTS NO PAIN OR DISCOMFORT. CALL LIGHT IN REACH. NATALIIA VAZQUEZ REMAINS IN ROOM TO START NEW IV.
--- NOTE | 2024-10-06 19:41 | NUR ---
RECEIVED REPORT FROM NATALIIA SANCHEZ. PT UP IN RECLINER, REQUESTING EYE DROPS AND GETTING BACK INTO BED. SALINE GIVEN FOR EYES. WILL GET HELP FOR BRENDA TRANSFER BACK TO BED.
--- NOTE | 2024-10-06 19:50 | NUR ---
DR. CASTREJON OK'D ORDER FOR PRN ARTIFICIAL TEARS PER PT REQUEST.
[2024-10-06] MEDS ORDERED: ARTIFICIAL TEARS 15 ML BTL OU PRN (20:00)
--- NOTE | 2024-10-06 20:05 | NUR ---
FARHAT IS AWAKE IN BED ON A 2L NC WATCHING TV. HOB IS AT 12 DEGREES. FARHAT STATES THAT SHE DOES USE A 2L NC AT HOME NOC.
--- NOTE | 2024-10-06 20:17 | NUR ---
MASONRY CONTRACTOR AND RN OBTAINED VITALS AND I&O. BRIDGES BAG EMPTIED. MASONRY CONTRACTOR COMPELTED BRIDGES CARE. PT STATES NO FURTHER NEEDS AT THIS TIME. CALL LIGHT WITHIN REACH.
[2024-10-06] MEDS ORDERED: NYSTATIN CREAM 30 GM TUBE TOP SCH (21:00)
--- NOTE | 2024-10-06 21:45 | NUR ---
PT UP IN RECLINERBRENDA AND 2 PERSON ASSIST USED TO GET PT BACK TO BED. VSS. DENIES PAIN. LSC. MOIST NON-PROD COUGH NOTED. ON 1L O2 N/C, CPOX IN PLACE. DENIES SOB. HRR W/ MURMUR, SLIGHTLY JAVI IN 50'S. BTA, LBM TODAY. F/C IN PLACE, CLEAR YELLOW URINE. CATH CARE DONE BY LUCY MARSHALL. PT HAS BASELINE N/T TO BLE-UNCHANGED. LEFT FOOT CHARCOT. PT IS W/C BOUND BASELINE. ALL FOLDS REDDENED RASH-ANTIFUNGAL CREAM APPLIED PER EMAR. IV RFA INFUSING ATB. BG 102, PT DECLINED HS LANTUS. CALL LIGHT WITHIN REACH.
--- NOTE | 2024-10-06 22:20 | NUR ---
PT AWAKE, SLEEPING BETWEEN CARE. IV ATB STARTED PER EMAR. NO OTHER NEEDS AT THIS TIME. CALL LIGHT WITHIN REACH.
[2024-10-07] VITALS (9 sets, daily range): BP systolic 104–140; BP diastolic 37–49
--- NOTE | 2024-10-07 01:06 | NUR ---
CALL LIGHT ANSWERED. PT NEEDED TO USE BED SMITH. [employer] DRIVER PLACED PT ON BEDPAN AND INSTRUCTED PT TO CALL WHEN FINISHED. CALL LIGHT ANSWERED AND PT TAKEN OFF BED SMITH. PT STATES NO FURTHER NEEDS AT THIS TIME. CALL LIGHT WITHIN REACH.
--- NOTE | 2024-10-07 01:29 | NUR ---
PT AWAKE, IV ATB COMPLETED. PILLOW GIVEN PER PT REQUEST FOR COMFORT.
[2024-10-07 05:35] LABS: BASOPHILS 1.2 % (0-2); EOSINOPHILS 3.5 % (0-6); HEMATOCRIT 34.5 % (35.0-50.0); HEMOGLOBIN 11.4 g/dL (12.0-18.0); LYMPHOCYTES 18.1 % (24-44); MCH 29.3 (27-36); MCHC 33.2 g/dl (30-36); MCV 88.5 fl (81-99); MONOCYTES 11.3 % (0-12); NEUTROPHILS 65.9 % (39-80); PLATELET COUNT 241 K/uL (140-440); RDW 15.9 (10.5-15.0)
[2024-10-07 05:48] LABS: ANION GAP 3.1 (7-21); BUN/CREATININE RATIO 11.42 (6.0-28.6); CALCIUM 9.2 mg/dL (8.5-10.1); CREATININE, SERUM 1.05 mg/dL (0.55-1.02); MAGNESIUM 1.6 mg/dL (1.8-2.4); POTASSIUM 4.1 mmol/L (3.5-5.1)
--- NOTE | 2024-10-07 05:49 | NUR ---
AUTOMATION TECHNOLOGIST OBTAINED VITALS AND I&O. BRIDGES BAG EMPTIED. PT STATES NO FURTHER NEEDS AT THIS TIME. CALL LIGHT WITHIN REACH.
[2024-10-07] MEDS ORDERED: MEROPENEM 1,000 MG VIAL IV ONE ×3 (05:55→21:15)
--- NOTE | 2024-10-07 06:00 | NUR ---
PT AWAKE, CHOCOLATE ENSURE GIVEN PER REQUEST. REPORTS LITTLE APPETITE LATELY. NO OTHER NEEDS OR CONCERNS AT THIS TIME.
--- NOTE | 2024-10-07 07:14 | NUR ---
REPORT RECEIVED FROM NATALIIA SCHAEFFER. PT RESTING IN BED WITH HOB ELEVATED, EYES CLOSED, MOUTH OPEN WITH EVEN AND UNLABORED RR. CPOX AT BEDSIDE. 1LNC IN PLACE. CALL LIGHT AND PERSONAL BELONGINGS IN REACH.
[2024-10-07] MEDS ORDERED: DEXTROSE 50% 50 ML SYR IV ONE (07:30)
--- NOTE | 2024-10-07 08:08 | NUR ---
PATIENT IS SITTING UP IN THEIR BED TO EAT BREAKFAST. BLOOD SUGAR CHECKED AND REPORTED TO NATALIIA SANCHEZ. APPLE JUICE REQUESTED.
--- NOTE | 2024-10-07 08:50 | NUR ---
INTO SEE PATIENT. PATIENT STILL PLANS TO GO BACK TO [facility] AFTER STAY. NO FUTHER CM NEEDS AT THIS TIME.
--- NOTE | 2024-10-07 08:57 | NUR ---
PATIENT IS LYING IN BED WITH EYES CLOSED AND RESPIRATIONS ARE EVEN AND UNALBORED. NC IN PLACE WITH THE CPOX AT BEDSIDE. TV IS ON. CALL LIGHT AND PERSONAL BELONGINGS ARE WITHIN REACH.
[2024-10-07] MEDS ORDERED: INSULIN GLARGINE-YFGN 100 UNIT/ML ML SUB-Q SCH (09:00)
--- NOTE | 2024-10-07 09:17 | NUR ---
MRSA NASAL SWAB COLLECTED TO SENT TO LAB.
--- NOTE | 2024-10-07 09:21 | NUR ---
CHART SENT TO T FOR UPDATES.
--- NOTE | 2024-10-07 09:43 | NUR ---
MEDICATION ADMINISTERED, SEE MAR. PT COMPLAINS OF PAIN IN MULTIPLE LOCATIONS RATED 4/10. PRN PAIN MEDICATION ADMINISTERED, SEE MAR. PT COMPLAINS OF NAUSEA, PRN NAUSEA MEDICATINO ADMINISTERED, SEE MAR. PT DENIES SOB BUT HAS OCCASIONAL COUGH SHE REPORTS SHE HAS HAD "MANY MONTHS". PT REPORTS EXPECTORATING GREEN MUCOUS, THIS RN HAS NOT WITNESSED THIS. PT USES ACAPELLA X10. SHE IS REQUESTING ICE CREAM. NO OTHER REQUESTS, CALL LIGHT IN REACH.
--- NOTE | 2024-10-07 09:43 | NUR ---
MEDICATION ADMINISTERED, SEE MAR. PT COMPLAINS OF PAIN IN HER FACE, MOUTH, HEADACHE, AND HER FEET RATED 4/10. PRN PAIN MEDICATION ADMINISTERED. PT ALSO COMPLAINS OF NAUSEA, PRN NAUSEA MEDICATION ADMINISTERED. PT HAS OCCASIONAL PRODUCTIVE COUGH, REPORTS SHE IS EXPECTORATING GREEN MUCOUS BUT THIS RN HAS NOT WITNESSED THIS. PT USES ACAPELLA X10. 1LNC REMAINS IN PLACE, CPOX AT BEDSIDE. PT IS REQUESTING ICE CREAM. NO OTHER REQUESTS. CALL LIGHT IN REACH.
--- NOTE | 2024-10-07 10:12 | NUR ---
UR CONCURRENT/CLINICAL REVIEW: MCG-PER MCG REVIEW MEETS INPT FOR DELIRIUM/CHF WITH CONTINUED NEED FOR OXYGEN AT ALL TIMES, NOT AT BASELINE. IV DIURETICS AND IV ANTIBIOTICS ODS [facility] INPT 10/04/24 @ 8172 ORDER MATCHES REG CLINICALS FAXED TO [facility] FOR AUTH REVIEW DISCHARGE TO HOME WHEN STABLE 10/10/24
--- NOTE | 2024-10-07 10:30 | NUR ---
MD NOTIFIED OF PT REFUSING TWO MEDICATIONS THIS MORNING. STATES THIS IS OKAY WITH HIM.
--- NOTE | 2024-10-07 10:33 | NUR ---
PATIENT HAD QUESITIONS ABOUT POA, ADVANCED DIRECTIVES AND POLST FORM. INFORMATION PROVIDED.
--- NOTE | 2024-10-07 10:59 | NUR ---
PT REQUESTING HER DIET BE REGULAR INSTEAD OF SOFT AND BITE SIZED. MD NOTIFIED, MD AGREEABLE TO REGULAR DIET. DIETARY NOTIFIED.
--- NOTE | 2024-10-07 11:10 | NUR ---
VISITED DURING SPIRITUAL CARE ROUNDS. PT APPEARED TO BE SLEEPING. DID NOT DISTURB. PROVIDED PRAYER.
--- NOTE | 2024-10-07 11:40 | NUR ---
ASSESSMENT COMPLETE. PT WANTING TO GET UP IN RECLINER, MADELYN, FROM PHYSICAL THERAPY ARRIVES TO ASSIST THIS RN AND LUCY ZAMARRIPA. PT PERFORMS PIVOT TRANSFER WITH MAXIMUM ASSISTANCE. OXYGEN TITRATED TO 4L DURING TRANSFER BUT PTs SPO2 SUSTAINS>95%, OXYGEN TITRATED TO 2L AND PT CONTINUES TO SUSTAIN SPO2>95%. PT IS ON 1LNC AT THIS TIME. SHE REPORTS NO SOB OR DISCOMFORT. LUNG SOUNDS ARE CLEAR IN BUL WITH FAINT FINE CRACKLES TO RLL AND CLEAR BUT DIMINISHED IN LLL. BRIDGES CATH CONTINUES TO FREELY DRAIN CLEAR YELLOW URINE AND IS AT THE SIDE OF THE RECLINER. PT REPORTS HER PAIN IS OVERALL A 2/10. THIS RN EXITS TO SPEAK WITH PHYSICAL THERAPY AND LUCY ZAMARRIPA REMAINS PRESENT WITH PT TO SET HER UP FOR LUNCH.
--- NOTE | 2024-10-07 14:12 | NUR ---
RT DID BREATHING TREATMENT. RN LAURA IN ROOM. PATIENT REQUESTED ENSURE PROTEIN DRINK. CALL LIGHT AND PERSONAL ITEMS ARE WITHIN REACH.
--- NOTE | 2024-10-07 14:38 | NUR ---
PT SITTING UP IN CHAIR AT THIS TIME, CPOX ALARMING, UPON ENTERING ROOM O2 WAS OFF PATIENT, SATS 80%. PT STATES THEY WANT HER TO BE FOF OXYGEN, DENIED BEING SOB, OXYGEN REAPPLIED, CONTINUES AT 2L PER NC AND SATS IMPROVED TO 92%. PT STATES SHE IS MISSING SOME OF HER CLOTHES THAT SHE WAS WEARING WHEN SHE ARRIVED. NEWS REPORTER CALLED ED, CCU CALLED WELL. CLOTHES WERE NOT FOUND. PT WAS INFORMED.
--- NOTE | 2024-10-07 15:27 | NUR ---
PT CURRENTLY TALKING ON THE PHONE. MEDS GIVEN - SEE MAR. SATS 96% ON 2L NC, WEANED DOWN TO 1.5L AT THIS TIME SHE IS MAINTAINING SATS WHILE TALKING FULL SENTENCES ON THE PHONE. DENIES BEING SOB. WILL CONTINUE TO MONITOR WITH CPOX. ALL PT CARE NEEDS MET AT THIS TIME. CALL LIGHT WITHIN REACH.
--- NOTE | 2024-10-07 16:53 | NUR ---
3PA BRENDA LIFT BACK INTO BED. BLOOD SUGAR CHECKED AND NATALIIA SANCHEZ NOTIFIED. DINNER TRAY SET UP. CALL LIGHT AND PERSONAL ITEMS WITHIN REACH. NO OTHER CARES WERE REQUESTED.
--- NOTE | 2024-10-07 17:05 | NUR ---
PATIENT WAS IN HER CHAIR AT THIS TIME, SHE WANTED TO GO BACK TO BED. LUCY (ND), LUCY HUNTER AND DALLIN ASSISTED THE PATIENT BACK INTO THE BRENDA SLING AND BACK TO BED. GOT HER ADJUSTED COMFORTABLE AND READY FOR DINNER. CALL LIGHT IS WITH IN REACH AND NOTHING ELSE NEEDED AT THIS TIME.
--- NOTE | 2024-10-07 17:08 | NUR ---
CARTRIDGE MAKER EMPTIED PATIENTS BRIDGES TWICE CALL LIGHT WITH IN REACH AND NOTHING ELSE NEEDED AT THIS TIME.
--- NOTE | 2024-10-07 17:11 | NUR ---
PATIENT RESTING IN BED EATING DINNER. SS INSULIN ADMINSTERED. PATIENT REQUESTING A MILK. MILK GIVEN. DENIES ANY FURTHER NEEDS. CALL LIGHT WITHIN REACH.
--- NOTE | 2024-10-07 18:11 | NUR ---
IV ABX COMPLETED. PT SALINE LOCKED AT THIS TIME. SHE IS ON THE PHONE WITH A FRIEND. MENU PROVIDED. NO REQUESTS, CALL LIGHT IN REACH.
--- NOTE | 2024-10-07 19:38 | NUR ---
REPORT RECEIVED FROM [facility]. PATIENT RESTING ON BACK IN BED, WATCHING TV. PATIENT DECLINES ANY NEEDS AT THIS TIME, CALL LIGHT IN REACH.
--- NOTE | 2024-10-07 20:40 | NUR ---
SCHEDULED MEDS ADMIN PER ORDER. WATER REFILLED, BRIDGES CATHETER EMPTIED. ASSESSMENT COMPLETED. IV FLUSHED WITH 10ML NS WITHOUT DIFFICULTY. DECLINES OTHER NEEDS, CALL LIGHT IN REACH.
--- NOTE | 2024-10-07 20:43 | NUR ---
FARHAT IS AWAKE IN BED ON A 1L NC. HOB IS ELEVATED AT 37 DEGREES. CORNWT LEVEL 5 DONE W/O DIFFICULTY.
--- NOTE | 2024-10-07 21:30 | NUR ---
BRIDGES CATH CARE COMPLETE, SCHEDULED MEDS ADMINISTERED PER ORDER. PATIENT GIVEN EYE MASK FOR COMFORT, NO FURTHER NEEDS IDENTIFIED, CALL LIGHT IN REACH. PATIENT REPOSITIONED WITH PILLOW UNDER LEFT HIP FOR COMORT.
--- NOTE | 2024-10-07 22:04 | NUR ---
warm purple wash pads given on requests
--- NOTE | 2024-10-07 22:36 | NUR ---
PATIENT RESTING IN BED WITH EYES CLOSED. RESP EVEN AND UNLABORED. NO NEEDS IDENTIFIED, IV MEDICATION CONTINUING TO INFUSE PER ORDER, CALL LIGHT IN REACH.
--- NOTE | 2024-10-07 23:12 | NUR ---
pt requestsing a Bible, genetic supervisor notified and a Marcelo's New Testament given to pt
[2024-10-08] VITALS (10 sets, daily range): BP systolic 116–134; BP diastolic 37–51
--- NOTE | 2024-10-08 00:10 | NUR ---
PATIENT RESTING WITH EYES CLOSED, RESP EVEN AND UNLABORED. NO NEEDS IDENTIFIED, CALL LIGHT IN REACH.
--- NOTE | 2024-10-08 00:43 | NUR ---
IV PUMP ALARMING, IV MEDICATION COMPLETED. PATIENT SALINE LOCKED AT THIS TIME. PATIENT AWAKE, WATCHING TV. DENIES ANY NEEDS, CALL LIGHT IN REACH.
--- NOTE | 2024-10-08 02:00 | NUR ---
PATIENT RESTING WITH EYES CLOSED, RESP EVEN AND UNLABORED. CALL LIGHT IN REACH, NO NEEDS IDENTIFIED.
--- NOTE | 2024-10-08 03:00 | NUR ---
PATIENT REPOSITIONED ONTO LEFT SIDE. DENIES OTHER NEEDS, CALL LIGHT IN REACH. BED ALARM ON.
--- NOTE | 2024-10-08 04:37 | NUR ---
PATIENT RESTING WITH EYES CLOSED, RESP EVEN AND UNLABORED. NO NEEDS IDENITIFED, CALL LIGHT IN REACH.
[2024-10-08 05:29] LABS: BASOPHILS 1.1 % (0-2); EOSINOPHILS 3.6 % (0-6); HEMATOCRIT 36.3 % (35.0-50.0); HEMOGLOBIN 11.9 g/dL (12.0-18.0); LYMPHOCYTES 19.4 % (24-44); MCH 28.9 (27-36); MCHC 32.7 g/dl (30-36); MCV 88.5 fl (81-99); NEUTROPHILS 65.9 % (39-80); PLATELET COUNT 255 K/uL (140-440); RDW 16.1 (10.5-15.0)
--- NOTE | 2024-10-08 05:42 | NUR ---
Pt on 2LNC, cpox at bedside. cooperative with vitals, f/c patent. declined to be repositioned at this time.
[2024-10-08 05:47] LABS: ANION GAP 3.2 (7-21); BUN/CREATININE RATIO 19.19 (6.0-28.6); CALCIUM 9.1 mg/dL (8.5-10.1); CREATININE, SERUM 0.99 mg/dL (0.55-1.02); MAGNESIUM 1.6 mg/dL (1.8-2.4); POTASSIUM 4.2 mmol/L (3.5-5.1)
[2024-10-08] MEDS ORDERED: MEROPENEM 1,000 MG VIAL IV ONE ×3 (05:54→22:22)
--- NOTE | 2024-10-08 06:11 | NUR ---
IV MEDICATION STARTED PER ORDER. PATIENT RESTING WITH EYES CLOSED, EASILY AWAKE RN TALKS TO HER. NO NEEDS IDENTIFIED, CALL LIGHT IN REACH.
--- NOTE | 2024-10-08 07:00 | NUR ---
REPORT RECEIVED FROM NATALIIA GLYNN. PT RESTING IN BED WITH EYES CLOSED, RR EVEN AND UNLABORED. IV ABX INFUSING WNL, 2LNC IN PLACE WITH CPOX AT BEDSIDE. BRIDGES CATH DRAINING FREELY TO BEDSIDE. CALL LIGHT AND PERSONAL BELONGINGS IN REACH.
[2024-10-08] MEDS ORDERED: ALBUTEROL/IPRATROPIUM 3 ML NEB INH SCH (08:00)
[2024-10-08] MEDS ORDERED: BUDESONIDE 0.5 MG/2 ML VIAL INH SCH (08:00)
--- NOTE | 2024-10-08 08:34 | NUR ---
MEDICATIONS ADMINISTERED, SEE MAR. PT SITTING UP IN BED EATING BREAKFAST AT THIS TIME. SHE IS REQUESTING A BED BATH TODAY. NO OTHER REQUESTS, CALL LIGHT AND PERSONAL BELONGINGS IN REACH.
[2024-10-08] MEDS ORDERED: MAGNESIUM SULFATE 2 GM/50 ML BAG IV SCH (09:00)
--- NOTE | 2024-10-08 09:45 | NUR ---
MEDICATION ADMINISTERED, SEE MAR. PT ASSISTED OFF OF BED SMITH. LEVI-CARE AND BRIDGES CATH CARE PERFORMED. PT REPORTS SHE IS GOING TO HAVE VISITORS TODAY AND SHE IS LOOKING FORWARD TO THIS. RESPIRATORY THERAPY ARRIVES FOR TREATMENT. NO OTHER REQUESTS, CALL LIGHT IN REACH.
--- NOTE | 2024-10-08 11:22 | NUR ---
ASSESSMENT COMPLETE. PT IS UP IN RECLINER, ASSISTED THERE BY PHYSICAL THERAPY AND LUCY HUNTER. BLE ARE ELEVATED. PT SALINE LOCKED AT THIS TIME. LUCY HUNTER AND PHYSICAL THERAPY REMAIN WITH PT AT THIS TIME.
--- NOTE | 2024-10-08 12:18 | NUR ---
MEDICATION ADMINISTERED, SEE SEP. PT UP IN RECLINER WITH BLE ELEVATED. SPO2 SUSTAINS>94% ON CPOX, NASAL CANULA TITRATED TO 1L 02. PT SUSTAINS>90% ON CPOX AT THIS TIME. PT NOTED TO HAVE EXPIRATORY WHEEZE IN BUL. RESPIRATORY THERAPY DUE SOON FOR TREATMENT. PT DENIES SHORTNESS OF BREATH OR CHEST DISCOMFORT. NO REQUESTS AT THIS TIME, CALL LIGHT AND PERSONAL BELONGINGS IN REACH.
--- NOTE | 2024-10-08 13:03 | NUR ---
BEFORE I WENT TO LUNCH I PUT A WAFFLE MATTRESS ON HER BED AND CHANGED BED LINENS. PATIENT IS SITTING UP AND EATING HER LUNCH IN HER CHAIR.
--- NOTE | 2024-10-08 13:10 | NUR ---
RESPIRATORY THERAPY IN WITH PT.
--- NOTE | 2024-10-08 13:10 | NUR ---
83% ON ROOM AIR. INCREASED 02 TO 2 LPM PER HOME REGIMEN. O2 ORDER CHANGED.
--- NOTE | 2024-10-08 13:54 | NUR ---
PT HAS VISITOR PRESENT AT THIS TIME. NO REQUESTS, CALL LIGHT AND PERSONAL BELONGINGS IN REACH.
--- NOTE | 2024-10-08 14:42 | NUR ---
BILAT BREAST FOLDS, PANNUS FOLDS, AND BELLY FOLDS CLEANSED, DRIED, CREAM APPLIED. INTERDRY PLACED UNDER BREAST FOLDS AND PANNUS FOLDS. UNDER FOLDS REMAIN REDDENED WITH FEW CRACKS IN THE SKIN AT THE EDGE OF BELLY FOLD AND PANNUS FOLD. PT ASSISTS THROUGHOUT IN HOLDING BREASTS AND PANNUS UP. PT TOLERATES WELL. LUNG SOUNDS HAVE MILD WHEEZING THROUGHOUT, PT DENIES SHORTNESS OF BREATH OR CHEST TIGHTNESS. 2LNC IN PLACE, CPOX AT CHAIRSIDE. PT REMAINS UP IN RECLINER WITH BLE ELEVATED. REQUESTS SNACK - PROVIDED. NO OTHER REQUESTS AT THIS TIME, CALL LIGHT AND PERSONAL BELONGINGS IN REACH.
--- NOTE | 2024-10-08 16:51 | NUR ---
PT HAS VISITOR ARRIVE.
--- NOTE | 2024-10-08 18:10 | NUR ---
PUMP CLEARED. PT RESTING IN RECLINER WITH BLE ELEVATED. IV ABX COMPLETED, SALINE LOCKED AT THIS TIME. NO REQUESTS, CALL LIGHT AND PERSONAL BELONGINGS IN REACH.
--- NOTE | 2024-10-08 20:55 | NUR ---
FARHAT IS AWAKE IN BED ON A 2L NC SHOPPING ON TEMU ON HER TABLET. HOB IS ELEVATED TO 16 DEGREES. FARHAT IS ABLE TO USE THE CORNET LEVEL W/O DIFFICULTY OR INCREASED S/S OF RESPIRATORY DISTRESS.
[2024-10-09] VITALS (10 sets, daily range): BP systolic 122–147; BP diastolic 40–53
--- NOTE | 2024-10-09 00:36 | NUR ---
resting, O2 2LNC, CPOX on at bedside, f/c patent. eyes closed, no s/sx distress at this time
--- NOTE | 2024-10-09 01:56 | NUR ---
FARHAT IS AWAKE IN BED ON A 2L NC. HOB IS ELEVATED.
--- NOTE | 2024-10-09 03:16 | NUR ---
Resting, eyes closed, O2 2LNC, CPOX on at bedside, no s/sx distress. f/c patent.
--- NOTE | 2024-10-09 04:43 | NUR ---
FRESH WATER GIVEN ON REQUETS. AWAKE, [id number], cpox ON AT BEDSIDE. DENIES SOB WITH EXERTION AT THIS TIME, HELPFUL, CALM AND COOPERATIVE. F/C PATENT. le ELEVATED. PLAYING WITH TABLET
[2024-10-09 05:48] LABS: BASOPHILS 0.8 % (0-2); EOSINOPHILS 3.8 % (0-6); HEMATOCRIT 36.1 % (35.0-50.0); HEMOGLOBIN 11.7 g/dL (12.0-18.0); MCH 28.9 (27-36); MCHC 32.3 g/dl (30-36); MCV 89.4 fl (81-99); MONOCYTES 9.1 % (0-12); NEUTROPHILS 68.3 % (39-80); PLATELET COUNT 266 K/uL (140-440); RBC 4.03 M/ul (4.3-5.7); RDW 16.3 (10.5-15.0)
[2024-10-09 05:59] LABS: ANION GAP 6.1 (7-21); CALCIUM 9.1 mg/dL (8.5-10.1); POTASSIUM 4.1 mmol/L (3.5-5.1)
[2024-10-09] MEDS ORDERED: MEROPENEM 1,000 MG VIAL IV ONE ×3 (06:00→21:55)
--- NOTE | 2024-10-09 06:35 | NUR ---
RADIO OPERATOR GROUND GAVE MOUTH SWABS TO PT UPON REQUEST.
--- NOTE | 2024-10-09 07:42 | NUR ---
MORNING REPORT RECIEVED FROM NATALIIA SANTIAGO. PT LAYING IN BED WITH EYES CLOSED CHEST RISE EQUAL BILAT. PT HAD NO ACUTE EVENTS LAST NIGHT AND HAS CALL LIGHT IN REACH.
[2024-10-09] MEDS ORDERED: ALBUTEROL/IPRATROPIUM 3 ML NEB INH SCH (08:00)
--- NOTE | 2024-10-09 08:20 | NUR ---
PT LAYING IN BED, THIS RN NOTED URINE IN BRIDGES BAG WAS RED, PT STATED THAT WAS NEW AND NOTHING IN REPORT STATED RED URINE. CHARGE NURSE NOTIFIED AND MD CASTREJON MADE AWARE. PT IS NOT IN ANY PAIN AT THIS TIME BRIDGES IS IN CORRECT PLACEMENT. PT HAS CALL LIGHT IN REACH.
[2024-10-09] MEDS ORDERED: FUROSEMIDE 40 MG/4 ML VIAL IV SCH (09:00)
--- NOTE | 2024-10-09 09:30 | NUR ---
DR. CASTREJON NOTIFIED AT 0900 MORNING MEETING THAT PATIENT HAD BLOOD IN URINE, NO CLOTS NOTICED. URINE IS SEDIMENTED AND WATERMELON PINK. UPDATE AT 0930, URINE IS LESS SEDIMENTED BUT STILL A LIGHT WATERMELON PINK.
--- NOTE | 2024-10-09 10:30 | NUR ---
PT CONTINUES TO VOID IN BRIDGES BAG URINE HAS NOW CHANGED FROM RED TO A LIGHT CLEAR YELLOW. PT HAS NO CURRENT COCNERNS AT THIS TIME, MD CASTREJON MADE AWARE AND IS PLEASED WITH CHANGES. PT HAS CALL LIGHT IN REACH.
--- NOTE | 2024-10-09 12:01 | NUR ---
Hourly rounding. Patient on tablet, patient request warm towel to wash face. AM was assisted. No request from patient at this time
--- NOTE | 2024-10-09 12:11 | NUR ---
PT LAYING IN BED PT HAS NO PAIN AT THIS TIME PT HAS CALL LIGHT IN REACH.
--- NOTE | 2024-10-09 14:05 | NUR ---
PT SITTING UP IN CHAIR, PT HAS NO COMPLAINTS OF PAIN AT THIS TIME, URINE HAS CONTINUED TO BE CLEAR. PT HAS NO OTHER CONCERNS AT THIS TIME AND HAS CALL LIGHT IN REACH.
--- NOTE | 2024-10-09 14:17 | NUR ---
Hourly rounding. Patient sleeping, no request at this time
--- NOTE | 2024-10-09 15:46 | NUR ---
PT SITTING UP IN CHAIR WITH NO CURRENT CONCERNS AT THIS TIME PT HAS LEGS ELEVATED, CALL LIGHT IN REACH.
--- NOTE | 2024-10-09 16:41 | NUR ---
PT SITTING UP IN CHAIR PT AGREEABLE TO STAYING IN CHAIR UNTIL AFTER DINNER THEN WILL RETURN BACK TO BED, PT HAS NO OTHER CONCERNS AT THIS TIME CALL LIGHT IN REACH.
--- NOTE | 2024-10-09 17:59 | NUR ---
PT FINISHED DINNER, AND HAS NO COMPLAINTS AT THIS TIME, PT WANTS TO STAY IN CHAIR A BIT LONGER, PT HAS CALL LIGHT IN REACH.
--- NOTE | 2024-10-09 18:52 | NUR ---
PT SITTING IN CHAIR, PT IS COMFORTABLE AT THIS TIME AND HAS NO CONCERNS. PT HAS CALL LIGHT IN REACH. PT NOTIFIED THAT CHICKEN TENDER WILL BE TAKING OVER SOON. PT WAS AGREABLE.
--- NOTE | 2024-10-09 19:55 | NUR ---
CURRENTLY FARHAT IS SITTING UPRIGHT IN THE RECLINER CHAIR. SHE IS ON A 2L NC AND ABLE TO USE THE CORNET LEVEL 5 W/O DIFFICULTY OR S/S OF INCREASES RESPIRATORY DISTRESS.
--- NOTE | 2024-10-09 20:41 | NUR ---
Pt in recliner chair, legs elevated, Hoyered back to bed. Pt awake, alert and oriented, cooperative, anxious but calms down with verbal reassurance. O2 2LNC cpox on at bedside, lungs with dim at bases, Coronet at bedside, just completed a neb tx. denies SOB. sats WNL. abd large soft, KRUNAL, no bm this shift. redness under breast and pannus, areas wiped and dried myconazole cream and inner dry cloth in place, red farzana area , lotion applied. was more cooperative. waffle mattres in place, bed zeroed prior to placing pt in bed. HOB elevated. was medicated with Tylenol 500mg per c/o back pain. meds given with puding. f/c in place, medium colored yellow urine noted at this time, farzana and f/c care done. all cares explained prior to, cooperative.
--- NOTE | 2024-10-09 22:24 | NUR ---
RESTING, EYES CLOSED, HAD TAKEN O2 NASL PRONGS OFF EARLIER, DESATTED TO 83% ON ROOM AIR. INSTRUCTED TO KEEP NC INPLACE, GOT UPSET, REINSTRUCTED ON WHY SHE NEEDS O2 AFTER SEVERAL CUES WAS PLACED BACK ON, SOON IT IS INPLACE SATS WENT UP TO 95% ON 2L, CPOX ON AT BEDSIDE. WAFFLE MATTRESS IN PLACE
--- NOTE | 2024-10-09 23:00 | NUR ---
PATIENT CALLED NEEDING HELP TO TURN. PATIENT IS LAYING ON TO HER LEFT SIDE. PILLOW UNDER/IN BETWEEN KNEES AND ON HER BACK. NO OTHER NEED AT THIS TIME.
--- NOTE | 2024-10-09 23:29 | NUR ---
Resting, eyes closed, O2 2LNC in place, CPOx at bedside, f/c patent draining medium colored urine. IV abx infusing. no s/sx distress at this time
[2024-10-10] VITALS (9 sets, daily range): BP systolic 132–143; BP diastolic 39–58
--- NOTE | 2024-10-10 02:07 | NUR ---
RESTING, 2LNC/CPOX, F/C PATENT, WAS TURNED AND REPOSITONED. TOOK O2 PRONGS OFF, DESATTED TO 82% ABOUT AN HOUR AGO, O2 BACK ON, RECUPERATES INSTANTLY. DENIES SOB.
--- NOTE | 2024-10-10 02:30 | NUR ---
FARHAT IS ASLEEP ON A 2L NC/ HOB ALMOST FLAT.
[2024-10-10] MEDS ORDERED: MEROPENEM 1,000 MG VIAL IV ONE ×3 (05:04→21:29)
[2024-10-10 05:12] LABS: BASOPHILS 0.5 % (0-2); EOSINOPHILS 4.8 % (0-6); HEMATOCRIT 35.7 % (35.0-50.0); HEMOGLOBIN 11.6 g/dL (12.0-18.0); LYMPHOCYTES 18.3 % (24-44); MCH 28.8 (27-36); MCHC 32.5 g/dl (30-36); MCV 88.5 fl (81-99); MONOCYTES 9.9 % (0-12); NEUTROPHILS 66.5 % (39-80); PLATELET COUNT 267 K/uL (140-440); RBC 4.03 M/ul (4.3-5.7); RDW 16.1 (10.5-15.0)
[2024-10-10 05:24] LABS: ANION GAP 4.2 (7-21); BUN/CREATININE RATIO 24.24 (6.0-28.6); CREATININE, SERUM 0.99 mg/dL (0.55-1.02); MAGNESIUM 1.9 mg/dL (1.8-2.4); POTASSIUM 4.2 mmol/L (3.5-5.1)
--- NOTE | 2024-10-10 07:27 | NUR ---
MORNING REPORT RECIEVED FROM NATALIIA SANTIAGO. PT LAYING IN BED WITH EYES CLOSED CHEST RISE EQUAL BILAT. PT URINE IS YELLOW, AND CLEAR. PT HAS CALL LIGHT IN REACH AT THIS TIME.
--- NOTE | 2024-10-10 07:46 | NUR ---
Hourly rounding. Patient is sleeping. Call light has been placed within reach and board has been updated
--- NOTE | 2024-10-10 08:15 | NUR ---
PT LAYING IN BED, PT HAS NO PAIN AT THIS TIME. PT REQUESTED PUDDING TO TAKE MEDS WITH. PT REPOSITIONED ONTO LEFT SIDE. PT HAS NO FURTHER CONCERNS AT THIS TIME CALL LIGHT IN REACH 2L O2 NC IN PLACE.
--- NOTE | 2024-10-10 09:28 | NUR ---
UR CONCURRENT REVIEW: MCG-PER MCG REVIEW DOES NOT MEET GL DAY 2 PATIENT REMAINS ON O2 AT 2L. STILL REQUIRING DIURESIS. ODS [facility] AUTH # [id number]. [facility] DISCHARGE TO SNF WHEN MEDICALLY READY 10/12/24
--- NOTE | 2024-10-10 09:39 | NUR ---
CONTINUED PLAN TO DC TO [facility] WHEN MEDICALLY READY. NO CM NEEDS AT THIS TIME.
--- NOTE | 2024-10-10 10:00 | NUR ---
PT LAYING IN BED, PT ADJUSTED IN BED, AND REPOSITIONED ONTO RIGHT SIDE. PT HAS NO OTHER CONCERNS AT THIS ITME AND HAS CALL LIGHT IN REACH.
--- NOTE | 2024-10-10 12:01 | NUR ---
PT SITTING UP IN BED, PT AGREEABLE TO MOVE TO CHAIR AFTER LUNCH AND HAS NO PAIN AT THIS TIME. PT CALL LIGHT IN REACH.
--- NOTE | 2024-10-10 12:50 | NUR ---
PT SITTING UP IN CHAIR AND WAS MOVED BY PHYSICAL THERAPY WITH BRENDA, PT HAS LITTLE MOTIVATION TO MOVE OR PARTICIPATE. PT HAS NO PAIN AT THIS TIME, AND CALL LIGHT IS IN REACH.
--- NOTE | 2024-10-10 13:50 | NUR ---
PT SITTING IN CHAIR WITH NO CONCERNS AT THIS TIME CALL LIGHT IN REACH.
--- NOTE | 2024-10-10 14:40 | NUR ---
PT SITTING IN CHAIR, BRIDGES IN PLACE, PT WAS COMPLAINING OF PAIN IN HER RIGHT ELBOW, PT HAS NO REDNESS, SWELLING, OR BRUISING. PT HAS EQUAL GREASE PRESS HELPER STRENGTH AND STRONG PULSE PT ARM WAS PROPPED ON PILLOW. PT AGREEABLE AND HAS NO FURTHER CONCERNS CALL LIGHT IN REACH.
--- NOTE | 2024-10-10 15:47 | NUR ---
PT SITTING UP IN CHAIR, PT HAS NO MORE PAIN IN HER ELBOW. PT HAS NO CONCERNS AT THIS TIME AND HAS CALL LIGHT IN REACH.
--- NOTE | 2024-10-10 18:16 | NUR ---
PT SITTING IN CHAIR, PT IS EATING DINNER AND HAS NO COMPLAINTS AT THIS TIME. PT HAS CALL LIGHT IN REACH.
--- NOTE | 2024-10-10 18:47 | NUR ---
PT SITTING IN BED WITH NO CONCERNS AT THIS TIME, PT DID REQUEST A DIET SODA . PT HAS CALL LIGHT IN REACH.
--- NOTE | 2024-10-10 19:15 | NUR ---
REPORT RECEIVED FROM LEMUEL WILLIAM. pt SITTING UP IN THE CHAIR. BOARD UPDATED. NO OTHER NEEDS AT THIS TIME. CALL LIGHT WITHIN REACH.
--- NOTE | 2024-10-10 20:30 | NUR ---
ASSESSMENT AND VITAL SIGNS DONE. SCHEDULED MEDS ADMINISTERED. BG CHECKED WITH A RESULTS OF 207. SS INSULIN ADMINISTERED. IV ASSESSED, WNL. WATER REFRESHED. SNACK PROVIDED. pt DENIES ANY OTHER NEEDS AT THIS TIME. CALL LIGHT WITHIN REACH.
--- NOTE | 2024-10-10 21:45 | NUR ---
IN RM TO START pt IV ABX. IV ABX INFUSING PER ORDER. pt DENIES ANY NEEDS AT THIS TIME. CALL LIGHT WITHIN REACH.
--- NOTE | 2024-10-10 22:09 | NUR ---
PATIENT WAS HOYERED FROM CHAIR TO BED BY PRIMARY RN AND THIS SENIOR ENERGY CONSULTANT. V/S AND I&O'S COMPLETED AND RECORDED. PATIENT WASHED HER HAND AND FACE. BRIDGES CARE PROVIDED. ROOM TIDIED. USED BLANKET PUT AWAY.
--- NOTE | 2024-10-11 00:38 | NUR ---
pt REPOSITIONED ON LEFT SIDE. WATER REFRESHED. pt DENIES ANY OTHER NEEDS AT THIS TIME. CALL LIGHT WITHIN REACH.
--- NOTE | 2024-10-11 02:52 | NUR ---
pt RESTING IN THE BED WITH EYES CLOSED. RR EVEN AND UNLABORED. CALL LIGHT WITHIN REACH.
--- NOTE | 2024-10-11 04:31 | NUR ---
pt RESTING IN THE BED WITH EYES CLOSED. RR EVEN AND UNLABORED. CALL LIGHT WITHIN REACH.
[2024-10-11 05:12] VITALS: BP 133/45
[2024-10-11 05:47] LABS: BASOPHILS 0.9 % (0-2); HEMATOCRIT 37.3 % (35.0-50.0); HEMOGLOBIN 12.2 g/dL (12.0-18.0); LYMPHOCYTES 18.1 % (24-44); MCH 29.2 (27-36); MCHC 32.8 g/dl (30-36); MONOCYTES 9.9 % (0-12); NEUTROPHILS 65.1 % (39-80); PLATELET COUNT 289 K/uL (140-440); RBC 4.19 M/ul (4.3-5.7); RDW 16.2 (10.5-15.0)
[2024-10-11] MEDS ORDERED: MEROPENEM 1,000 MG VIAL IV ONE ×2 (05:57→14:39)
[2024-10-11 06:02] LABS: ANION GAP 3.6 (7-21); BUN/CREATININE RATIO 25.92 (6.0-28.6); CALCIUM 9.1 mg/dL (8.5-10.1); CREATININE, SERUM 0.81 mg/dL (0.55-1.02); MAGNESIUM 1.8 mg/dL (1.8-2.4); POTASSIUM 3.6 mmol/L (3.5-5.1)
--- NOTE | 2024-10-11 06:47 | NUR ---
VITAL SIGNS DONE. IV ABX INFUSING PER ORDER. SNACK PROVIDED. pt DENIES ANY OTHER NEEDS AT THIS TIME. CALL LIGHT WITHIN REACH.
--- NOTE | 2024-10-11 07:30 | NUR ---
MORNING REPORT RECIEVED FROM NATALIIA PATEL. PT LAYING IN BED WITH EYES CLOSED CHEST RISE EQUAL BILAT. PT HAS 2L NC, AND CPOX IN PLACE. PT HAS CALL LIGHT IN REACH.
--- NOTE | 2024-10-11 07:44 | NUR ---
HOURLY ROUNDING. PATIENT IS IN AND OUT OF SLEEP. BLOOD GLUCOSE HAS BEEN DOCUMENTED AND BOARD IS UPDATED. NO REQUEST FROM PATIENT AT THIS TIME
[2024-10-11 09:03] VITALS: BP 121/29
--- NOTE | 2024-10-11 09:44 | NUR ---
ALERT AND ORIENTED IN BED. PLAN TO DC TO [facility] TODAY. NOTIFIED DANIELA FOR [facility].
[2024-10-11 10:18] VITALS: BP 121/29
--- NOTE | 2024-10-11 11:30 | NUR ---
PT SITTING UP IN CHAIR AND WAS MOVED BY PHYSICAL THERAPY. PT HAS NO CURRENT CONCERNS AT THIS TIME CALL LIGHT IN REACH.
[2024-10-11 13:12] VITALS: BP 126/53
--- NOTE | 2024-10-11 13:38 | NUR ---
PT SITTING UP IN CHAIR. PT HAS EYES CLOSED CHEST RISE EQUAL BILAT. PT HAS CALL LIGHT IN REACH.
[2024-10-11] MEDS ORDERED: BACTRIM DS TAB1 EACH PO (13:46)
[2024-10-11] MEDS ORDERED: BACLOFEN10 MG PO (13:46)
[2024-10-11] MEDS ORDERED: BUSPIRONE HCL5 MG PO (13:47)
[2024-10-11] MEDS ORDERED: PREGABALIN25 MG PO (13:47)
[2024-10-11] MEDS ORDERED: PRAMIPEXOLE DIHY1 MG PO (13:48)
[2024-10-11 14:00] VITALS: BP 126/53
--- NOTE | 2024-10-11 14:10 | NUR ---
ORDERS SENT TO [facility]. WHEELCHAIR VAN SCHEDULED FOR 1645 THIS AFTERNOON TO RETURN TO FACILITY.
--- NOTE | 2024-10-11 15:09 | NUR ---
VISITED DURING SPIRITUAL CARE ROUNDS. PT IN OVERALL GOOD SPIRITS, TALKED OF VISITORS SHE RECEIVES AT HOME. REPORTED SHE DID NOT WANT ANY MORE IV LASIX. I RELAYED REQUEST TO NURSING STAFF. PT EXPRESSED ALLIE DUIRNG INTERACTION WITH THERAPY ANIMAL. SCIENTIFIC PHOTOGRAPHER PROVIDED SUPPORTIVE PRESENCE, HOSPITALITY, PRAYER, FACILITATED INTERACTION WITH THERAPY ANIMAL.
--- NOTE | 2024-10-11 15:14 | NUR ---
PT SITTING UP IN CHAIR PT REFUSED MD JAVY GONSALVES MADE AWARE AND APROVED HOLDING THE MED. PT HAS CALL LIGHT IN REACH AND NO FURTHER COCNERNS AT THIS TIME.
--- NOTE | 2024-10-11 16:05 | NUR ---
PATIENT IN CHAIR AT THIS TIME. THIS ORGANIZATIONAL DEVELOPMENT MANAGER REMOVED PATIENTS BRIDGES AT RN BELKYS REQUEST. CALL LIGHT WITHIN REACH, NO FURTHER NEEDS AT THIS TIME.
[2024-10-11 16:40] VITALS: BP 124/46
== END 2024-10-11 16:45 | disposition home or self-care (01) | DRG 91 ==
LOC: ED 12:14 → CCU 17:46 → MS 17:46
PROVIDERS: Emergency Medicine; ADMIT Student in an Organized Health Care Education/Training Program; ATTEND Student in an Organized Health Care Education/Training Program
PROC: 5A09357 Assistance with Respiratory Ventilation, Less than 24 Consecutive Hours, Continuous Positive Airway Pressure (ICD-10-PCS; principal; 2024-10-04)
DX: G92.8 Other toxic encephalopathy (principal); I50.33 Acute on chronic diastolic (congestive) heart failure; J18.9 Pneumonia, unspecified organism; J96.92 Respiratory failure, unspecified with hypercapnia; N39.0 Urinary tract infection, site not specified; I13.0 Hypertensive heart and chronic kidney disease with heart failure and stage 1 through stage 4 chronic kidney disease, or unspecified chronic kidney disease; N17.9 Acute kidney failure, unspecified; Z16.12 Extended spectrum beta lactamase (ESBL) resistance; Z68.41 Body mass index [BMI] 40.0-44.9, adult; E87.20 Acidosis, unspecified; R31.9 Hematuria, unspecified; I48.91 Unspecified atrial fibrillation; I25.10 Atherosclerotic heart disease of native coronary artery without angina pectoris; F39 Unspecified mood [affective] disorder; R00.1 Bradycardia, unspecified; T46.2X5A Adverse effect of other antidysrhythmic drugs, initial encounter; Z88.8 Allergy status to other drugs, medicaments and biological substances; I45.10 Unspecified right bundle-branch block; E11.22 Type 2 diabetes mellitus with diabetic chronic kidney disease; N18.9 Chronic kidney disease, unspecified; I27.20 Pulmonary hypertension, unspecified; Z88.1 Allergy status to other antibiotic agents; Z91.038 Other insect allergy status; Z91.040 Latex allergy status; Z79.899 Other long term (current) drug therapy; Z98.1 Arthrodesis status; M32.9 Systemic lupus erythematosus, unspecified; F32.A Depression, unspecified; E66.01 Morbid (severe) obesity due to excess calories; F41.9 Anxiety disorder, unspecified; K21.9 Gastro-esophageal reflux disease without esophagitis; G25.81 Restless legs syndrome; K44.9 Diaphragmatic hernia without obstruction or gangrene; G89.29 Other chronic pain; M19.90 Unspecified osteoarthritis, unspecified site; Z90.710 Acquired absence of both cervix and uterus; Z98.890 Other specified postprocedural states; Z79.4 Long term (current) use of insulin; Z79.01 Long term (current) use of anticoagulants; D64.9 Anemia, unspecified; Z86.73 Personal history of transient ischemic attack (TIA), and cerebral infarction without residual deficits; Z99.81 Dependence on supplemental oxygen
CPT/HCPCS: 36415; 36600; 70450; 71045; 71260; 80048; 80053; 80307; 81001; 82803; 83605; 83735; 83880; 84484; 85025; 85379; 87077; 87088; 87186; 93005; 93010; 93306; 94640; 94660; 94667; 94668; 94762; 94799; 97162; 97166; 97530; A9270; J0696; J1335; J1815; J1940; J2185; J2310; J2405; J3475; J7030; Q9967